=== PATIENT | female | born 1950 | race Caucasian/White ===

== ENCOUNTER 2018-11-27 09:58 | Inpatient (IN) ==
[2018-11-27] MEDS ORDERED: MORPHINE 4 MG/1 ML VIAL IV PRN (10:54)
[2018-11-27] MEDS ORDERED: PROMETHAZINE 25 MG/1 ML VIAL IM PRN (10:54)
[2018-11-27 11:14] LABS: Basophils % 0.2 % (0.0-0.8); Eosinophils # 0.1 10*3/uL (0.0-0.87); Eosinophils % 1.4 % (0.00-10.9); Hematocrit 28.4 VOL% (35.7-47.0); Hemoglobin 8.8 GM/DL (12.0-16.0); Immature Granulocytes % 0.6 %; Immature Granulocytes Absolute 0.04 #; Lymphocytes # 1.5 10*3/uL (1.4-4.0); Lymphocytes % 23.4 % (21.3-54.2); Mean Corpuscular Volume 95.9 FL (87-102); Mean Platelet Volume 9.2 FL (9.6-12.0); Monocytes % 7.5 % (1.7-12.7); Neutrophils % 66.9 % (38.7-73.9); Platelet Count 225 T/CUMM (130-400); Red Blood Count 2.96 MC/CUMM (3.8-5.5); Red Cell Distribution Width 14.7 % (9.3-17.3); White Blood Count 6.5 T/CUMM (4-12)
[2018-11-27 11:52] LABS: Alanine Aminotransferase 20 U/L (13-56); Albumin 3.3 G/DL (3.4-5.0); Alkaline Phosphatase 175 U/L (45-117); Aspartate Amino Transferase 16 U/L (0-37); Bilirubin,Total < 0.39 MG/DL (0.2-1.0); Blood Urea Nitrogen 89 MG/DL (7-18); Calcium 7.2 MG/DL (8.5-10.1); Glucose 71 MG/DL (74-106); Osmolality,Calculated 301.5 MOS/KG (273-304)
[2018-11-27 11:59] LABS: Thyroid Stimulating Hormone 11.3 uIU/ml (0.358-3.74)
[2018-11-27 12:13] LABS: % Iron Saturation 32.8 % (18-50); Ferritin 45.8 ng/ml (8-252)
[2018-11-27] MEDS: PANTOPRAZOLE 40 MG TABLET PO SCH (13:10)
[2018-11-27] MEDS: SODIUM BICARB INJ 150 MEQ in STERILE WATER INJ 850 ML IV SCH (13:10)
[2018-11-27] MEDS ORDERED: MAGNESIUM SULF RIDER 2 GM in PREMIX 1 EACH IV ONE (13:29)
[2018-11-27] MEDS ORDERED: GLUCAGON 1 MG VIAL IM PRN (13:34)
[2018-11-27] MEDS ORDERED: DEXTROSE 50% 25 GM/50 ML VIAL IV PRN (13:34)
[2018-11-27] MEDS: ASPIRIN EC 81 MG TABLET PO SCH (13:47)
[2018-11-27] MEDS ORDERED: SODIUM POLYSTYRENE SULFATE 15 GM/60 ML BOTTLE PO STA (13:54)
[2018-11-27 14:09] LABS: Free T4 (Free Thyroxine) 0.82 NG/DL (0.76-1.46)
[2018-11-27] MEDS: CARVEDILOL 12.5 MG TABLET PO SCH (16:08)
[2018-11-27] MEDS: SODIUM BICARBONATE 650 MG TABLET PO SCH ×2 (16:08→20:25)
[2018-11-27] MEDS: INSULIN REGULAR 100 UNIT/ML SUBCUT SCH ×2 (16:10→21:16)
[2018-11-27 17:02] LABS: Apearance,Urine CLEAR (Clear); Bacteria,Urine Many /HPF (Few); Bilirubin,Urine Negative (Negative); Blood, Urine Small mg/dL (Negative); Glucose,Urine (UA) Negative (Negative); Ketones,Urine Negative (Negative); Mucus,Urine Occasional /LPF (Occasional); Nitrite,Urine Negative (Negative); Protein,Urine 100 MG/DL; RBC,Urine 2 /HPF (0-4); Squamous Epithelial Cell,Urine Occasional /HPF (0-10); Urine Color Yellow (Yellow); Urine Urobilinogen < 2.0 EU/DL (0.2-1.0); WBC,Urine 19 /HPF (0-6)
[2018-11-27 21:48] LABS: Protein/Creatinine Ratio,Urine 4.4 RATIO
[2018-11-28] MEDS: SODIUM BICARB INJ 150 MEQ in STERILE WATER INJ 850 ML IV SCH (01:22)
[2018-11-28 04:52] LABS: Basophils % 0.3 % (0.0-0.8); Eosinophils # 0.1 10*3/uL (0.0-0.87); Hematocrit 25.8 VOL% (35.7-47.0); Hemoglobin 8.4 GM/DL (12.0-16.0); Immature Granulocytes % 0.3 %; Immature Granulocytes Absolute 0.02 #; Lymphocytes # 1.4 10*3/uL (1.4-4.0); Lymphocytes % 23.9 % (21.3-54.2); Mean Corpuscular HGB Conc 32.6 GM/DL (32-36); Mean Corpuscular Volume 91.5 FL (87-102); Mean Platelet Volume 9.6 FL (9.6-12.0); Monocytes % 8.1 % (1.7-12.7); Neutrophils % 66.4 % (38.7-73.9); Platelet Count 219 T/CUMM (130-400); Red Blood Count 2.82 MC/CUMM (3.8-5.5); Red Cell Distribution Width 14.3 % (9.3-17.3); White Blood Count 5.9 T/CUMM (4-12)
[2018-11-28 05:25] LABS: Calcium 6.5 MG/DL (8.5-10.1); Osmolality,Calculated 302.7 MOS/KG (273-304)
[2018-11-28 05:59] LABS: Risk Ratio 3.58; VLDL CHOLESTEROL 40.4 MG/DL
[2018-11-28] MEDS: LEVOTHYROXINE 150 MCG TABLET PO SCH (06:09)
[2018-11-28] MEDS ORDERED: LEVOTHYROXINE 100 MCG TABLET PO SCH (07:00)
[2018-11-28 08:38] LABS: Random Urine Protein (Bench) 151 MG/DL (<11.9)
[2018-11-28] MEDS: SODIUM BICARB INJ 100 MEQ in DEXTROSE 5% NACL 0.45% 1,000 ML IV SCH ×2 (09:04→23:45)
[2018-11-28] MEDS: INSULIN REGULAR 100 UNIT/ML SUBCUT SCH ×4 (09:06→20:48)
[2018-11-28] MEDS: amLODIPine 5 MG TABLET PO SCH (09:06)
[2018-11-28] MEDS: ACETAMINOPHEN 325 MG TABLET PO PRN (09:06)
[2018-11-28] MEDS: SODIUM BICARBONATE 650 MG TABLET PO SCH ×3 (10:12→20:49)
[2018-11-28] MEDS: ONDANSETRON 4 MG/2 ML VIAL IV PRN ×2 (10:25→18:31)
[2018-11-28 13:02] LABS: Folate 6.4 NG/ML (5.4-24.0)
[2018-11-28] MEDS: LEVOFLOXACIN 500 MG TABLET PO SCH (15:37)
[2018-11-28] MEDS: PANTOPRAZOLE 40 MG TABLET PO SCH (15:38)
[2018-11-28] MEDS: SIMVASTATIN 20 MG TABLET PO SCH (15:38)
[2018-11-28] MEDS: ASPIRIN EC 81 MG TABLET PO SCH (15:38)
[2018-11-28] MEDS: CARVEDILOL 12.5 MG TABLET PO SCH ×2 (15:38→17:33)
[2018-11-29 05:43] LABS: Basophils % 0.2 % (0.0-0.8); Eosinophils % 0.8 % (0.00-10.9); Hematocrit 23.3 VOL% (35.7-47.0); Hemoglobin 7.6 GM/DL (12.0-16.0); Immature Granulocytes % 0.2 %; Immature Granulocytes Absolute 0.01 #; Lymphocytes # 1.6 10*3/uL (1.4-4.0); Lymphocytes % 30.8 % (21.3-54.2); Mean Corpuscular HGB Conc 32.6 GM/DL (32-36); Mean Corpuscular Volume 92.5 FL (87-102); Mean Platelet Volume 9.7 FL (9.6-12.0); Monocytes % 9.5 % (1.7-12.7); Neutrophils % 58.5 % (38.7-73.9); Platelet Count 216 T/CUMM (130-400); Red Blood Count 2.52 MC/CUMM (3.8-5.5); Red Cell Distribution Width 14.4 % (9.3-17.3); White Blood Count 5.1 T/CUMM (4-12)
[2018-11-29 06:14] LABS: Calcium 5.9 MG/DL (8.5-10.1); Osmolality,Calculated 305.7 MOS/KG (273-304)
[2018-11-29] MEDS: SODIUM BICARBONATE 650 MG TABLET PO SCH ×4 (07:04→20:49)
[2018-11-29] MEDS: LEVOTHYROXINE 150 MCG TABLET PO SCH (07:04)
[2018-11-29] MEDS: SODIUM BICARB INJ 100 MEQ in DEXTROSE 5% NACL 0.45% 1,000 ML IV SCH (07:06)
[2018-11-29] MEDS ORDERED: SODIUM CHLORIDE 0.9% 1,000 ML IV PRN (07:11)
[2018-11-29] MEDS ORDERED: EPOETIN ALFA 10,000 UNIT/1 ML VIAL SUBCUT ONE (07:52)
[2018-11-29] MEDS ORDERED: CALCIUM GLUCONATE 2,000 MG in SODIUM CHLORIDE 0.9% 100 ML IV PRN (07:52)
[2018-11-29] MEDS: CARVEDILOL 12.5 MG TABLET PO SCH ×2 (08:37→16:56)
[2018-11-29] MEDS: PANTOPRAZOLE 40 MG TABLET PO SCH (08:37)
[2018-11-29] MEDS: INSULIN REGULAR 100 UNIT/ML SUBCUT SCH ×3 (08:37→16:48)
[2018-11-29] MEDS: amLODIPine 5 MG TABLET PO SCH (08:37)
[2018-11-29] MEDS: LEVOFLOXACIN 500 MG TABLET PO SCH (08:37)
[2018-11-29] MEDS: SIMVASTATIN 20 MG TABLET PO SCH (08:37)
[2018-11-29] MEDS: ASPIRIN EC 81 MG TABLET PO SCH (08:38)
[2018-11-29] MEDS: INSULIN GLARGINE 100 UNIT/ML SUBCUT SCH (09:10)
[2018-11-29] MEDS: cefTRIAXone 1,000 MG in SYRINGE 1 EACH IV SCH (12:29)
[2018-11-29 13:51] LABS: Hematocrit 30.2 VOL% (35.7-47.0)
[2018-11-29 13:53] LABS: Hemoglobin 9.8 GM/DL (12.0-16.0)
[2018-11-29] MEDS: ONDANSETRON 4 MG/2 ML VIAL IV PRN (17:20)
[2018-11-30] MEDS: ACETAMINOPHEN 325 MG TABLET PO PRN (00:27)
[2018-11-30] MEDS: INSULIN REGULAR 100 UNIT/ML SUBCUT SCH ×3 (00:45→12:15)
[2018-11-30 05:11] LABS: Basophils % 0.3 % (0.0-0.8); Eosinophils # 0.1 10*3/uL (0.0-0.87); Eosinophils % 1.4 % (0.00-10.9); Hematocrit 29.9 VOL% (35.7-47.0); Hemoglobin 9.6 GM/DL (12.0-16.0); Immature Granulocytes % 0.5 %; Immature Granulocytes Absolute 0.03 #; Lymphocytes # 1.8 10*3/uL (1.4-4.0); Lymphocytes % 28.3 % (21.3-54.2); Mean Corpuscular HGB Conc 32.1 GM/DL (32-36); Mean Platelet Volume 9.9 FL (9.6-12.0); Monocytes % 9.8 % (1.7-12.7); Neutrophils % 59.7 % (38.7-73.9); Platelet Count 231 T/CUMM (130-400); Red Blood Count 3.25 MC/CUMM (3.8-5.5); White Blood Count 6.4 T/CUMM (4-12)
[2018-11-30 05:18] LABS: Calcium 6.3 MG/DL (8.5-10.1); Osmolality,Calculated 307.4 MOS/KG (273-304)
[2018-11-30] MEDS: LEVOTHYROXINE 150 MCG TABLET PO SCH (06:25)
[2018-11-30] MEDS: SODIUM BICARBONATE 650 MG TABLET PO SCH (09:19)
[2018-11-30] MEDS: CARVEDILOL 12.5 MG TABLET PO SCH (09:20)
[2018-11-30] MEDS: SIMVASTATIN 20 MG TABLET PO SCH (09:20)
[2018-11-30] MEDS: PANTOPRAZOLE 40 MG TABLET PO SCH (09:20)
[2018-11-30] MEDS: INSULIN GLARGINE 100 UNIT/ML SUBCUT SCH (09:20)
[2018-11-30] MEDS: amLODIPine 5 MG TABLET PO SCH (09:20)
[2018-11-30] MEDS: ASPIRIN EC 81 MG TABLET PO SCH (09:20)
[2018-11-30] MEDS ORDERED: CLORAZEPATE 3.75 MG TABLET PO SCH (09:51)
[2018-11-30] MEDS ORDERED: MAGNESIUM SULF RIDER 2 GM in PREMIX 1 EACH IV ONE (09:51)
[2018-11-30] MEDS ORDERED: CALCIUM ACETATE 667 MG CAPSULE PO SCH (12:00)
[2018-11-30] MEDS: cefTRIAXone 1,000 MG in SYRINGE 1 EACH IV SCH (12:15)
[2018-11-30 12:56] VITALS: BP 164/82
[2018-11-30] MEDS ORDERED: CALCIUM GLUCONATE 2,000 MG in SODIUM CHLORIDE 0.9% 100 ML IV ONE (13:00)
== END 2018-11-30 14:42 | disposition home health service (06) | DRG 683 ==
LOC: INTOOBSV 10:30 → N.2E 10:30 → SUATTDRO 10:30
PROVIDERS: ADMIT Internal Medicine; ATTEND Internal Medicine Cardiovascular Disease

== ENCOUNTER 2019-04-12 23:58 | Inpatient (IN) ==
[2019-04-13] MEDS ORDERED: ONDANSETRON 4 MG/2 ML VIAL IV STA (00:37)
[2019-04-13] MEDS ORDERED: SODIUM CHLORIDE 0.9% 1,000 ML IV STA (00:37)
[2019-04-13 01:03] LABS: Bilirubin,Total 0.4 MG/DL (0.2-1.0); Calcium 6.5 MG/DL (8.5-10.1); Osmolality,Calculated 280.5 MOS/KG (273-304); Total Protein 4.2 G/DL (6.4-8.3)
[2019-04-13] MEDS ORDERED: ACETAMINOPHEN 500 MG TABLET PO STA (01:07)
[2019-04-13] MEDS ORDERED: ACETAMINOPHEN 500 MG TABLET ONE (01:08)
[2019-04-13] MEDS ORDERED: MAGNESIUM SULF RIDER 1 GM in PREMIX 1 EACH IV STA (01:16)
[2019-04-13 01:30] LABS: Basophils % 0.3 % (0.0-0.8); Eosinophils # 0.1 10*3/uL (0.0-0.87); Eosinophils % 0.7 % (0.00-10.9); Hematocrit 24.3 VOL% (35.7-47.0); Hemoglobin 8.4 GM/DL (12.0-16.0); Immature Granulocytes % 0.9 %; Lymphocytes # 4.1 10*3/uL (1.4-4.0); Lymphocytes % 37.1 % (21.3-54.2); Mean Corpuscular HGB Conc 34.6 GM/DL (32-36); Mean Platelet Volume 10.9 FL (9.6-12.0); Monocytes % 8.3 % (1.7-12.7); Neutrophils % 52.7 % (38.7-73.9); Platelet Count 276 T/CUMM (130-400); Red Blood Count 2.53 MC/CUMM (3.8-5.5); Red Cell Distribution Width 14.8 % (9.3-17.3)
[2019-04-13] MEDS ORDERED: POTASSIUM CHLORIDE INJ 40 MEQ in DEXTROSE 5% LACTATED RINGERS 1,000 ML IV SCH (01:30)
[2019-04-13 02:17] LABS: Risk Ratio 3.12
[2019-04-13] MEDS ORDERED: GLUCAGON 1 MG VIAL IM PRN (03:06)
[2019-04-13] MEDS ORDERED: DEXTROSE 50% 25 GM/50 ML VIAL IV PRN (03:06)
[2019-04-13] MEDS ORDERED: MORPHINE 4 MG/1 ML VIAL IV ONE (03:30)
[2019-04-13] MEDS: HEPARIN 5,000 UNIT/1 ML VIAL SUBCUT SCH ×3 (03:45→21:37)
[2019-04-13] MEDS: POTASSIUM CHLORIDE RIDER 10 MEQ in PREMIX 1 EACH IV SCH ×3 (03:53→06:54)
[2019-04-13 05:14] LABS: Basophils % 0.2 % (0.0-0.8); Eosinophils % 0.7 % (0.00-10.9); Hemoglobin 7.9 GM/DL (12.0-16.0); Immature Granulocytes % 0.5 %; Immature Granulocytes Absolute 0.03 #; Lymphocytes # 1.8 10*3/uL (1.4-4.0); Lymphocytes % 28.7 % (21.3-54.2); Mean Corpuscular HGB Conc 34.3 GM/DL (32-36); Mean Corpuscular Volume 95.8 FL (87-102); Mean Platelet Volume 10.5 FL (9.6-12.0); Monocytes % 8.5 % (1.7-12.7); Neutrophils % 61.4 % (38.7-73.9); Platelet Count 269 T/CUMM (130-400); Red Cell Distribution Width 14.9 % (9.3-17.3); White Blood Count 6.1 T/CUMM (4-12)
[2019-04-13 05:42] LABS: Albumin 1.1 G/DL (3.4-5.0); Bilirubin,Total 1.2 MG/DL (0.2-1.0); Calcium 6.5 MG/DL (8.5-10.1); Osmolality,Calculated 284.8 MOS/KG (273-304); Total Protein 4.2 G/DL (6.4-8.3)
[2019-04-13] MEDS: LEVOTHYROXINE 150 MCG TABLET PO SCH (06:07)
[2019-04-13] MEDS: ONDANSETRON 4 MG/2 ML VIAL IV PRN ×3 (06:11→21:23)
[2019-04-13] MEDS: INSULIN LISPRO 100 UNIT/ML SUBCUT SCH ×3 (08:05→19:35)
[2019-04-13] MEDS ORDERED: PANTOPRAZOLE 40 MG TABLET PO SCH (09:00)
[2019-04-13] MEDS: MEGESTROL 40 MG TABLET PO SCH ×3 (10:37→21:27)
[2019-04-13] MEDS ORDERED: CALCIUM GLUCONATE 2,000 MG in SODIUM CHLORIDE 0.9% 100 ML IV PRN (19:38)
[2019-04-13] MEDS ORDERED: EPOETIN ALFA 10,000 UNIT/1 ML VIAL SUBCUT ONE (21:00)
[2019-04-13] MEDS: POTASSIUM CHLORIDE 20 MEQ/15 ML UDCUP PO SCH (21:27)
[2019-04-13] MEDS: PANTOPRAZOLE 40 MG TABLET PO SCH (21:44)
[2019-04-14] MEDS: INSULIN LISPRO 100 UNIT/ML SUBCUT SCH ×4 (00:37→17:57)
[2019-04-14] MEDS: SODIUM CHLORIDE 0.9% 1,000 ML IV SCH (08:26)
[2019-04-14] MEDS: LEVOTHYROXINE 150 MCG TABLET PO SCH (08:26)
[2019-04-14] MEDS: POTASSIUM CHLORIDE 20 MEQ/15 ML UDCUP PO SCH ×5 (08:27→22:48)
[2019-04-14] MEDS: MEGESTROL 40 MG TABLET PO SCH ×3 (08:27→22:46)
[2019-04-14] MEDS: PANTOPRAZOLE 40 MG TABLET PO SCH ×2 (08:27→22:44)
[2019-04-14] MEDS: POTASSIUM CHLORIDE RIDER 10 MEQ in PREMIX 1 EACH IV PRN ×5 (08:28→17:56)
[2019-04-14] MEDS: HEPARIN 5,000 UNIT/1 ML VIAL SUBCUT SCH ×2 (09:10→18:01)
[2019-04-14] MEDS: ONDANSETRON 4 MG/2 ML VIAL IV PRN ×3 (09:11→22:36)
[2019-04-14] MEDS ORDERED: MAGNESIUM SULF RIDER 2 GM in PREMIX 1 EACH IV ONE (09:28)
[2019-04-14 09:58] LABS: Basophils % 0.3 % (0.0-0.8); Eosinophils # 0.2 10*3/uL (0.0-0.87); Eosinophils % 2.8 % (0.00-10.9); Hematocrit 24.1 VOL% (35.7-47.0); Immature Granulocytes % 1.3 %; Immature Granulocytes Absolute 0.09 #; Lymphocytes # 2.6 10*3/uL (1.4-4.0); Lymphocytes % 37.6 % (21.3-54.2); Mean Corpuscular HGB Conc 33.2 GM/DL (32-36); Mean Corpuscular Volume 99.2 FL (87-102); Mean Platelet Volume 9.8 FL (9.6-12.0); Platelet Count 287 T/CUMM (130-400); Red Blood Count 2.43 MC/CUMM (3.8-5.5); Red Cell Distribution Width 15.8 % (9.3-17.3); White Blood Count 6.8 T/CUMM (4-12)
[2019-04-14 10:30] LABS: Calcium 7.1 MG/DL (8.5-10.1); Osmolality,Calculated 278.8 MOS/KG (273-304)
[2019-04-15] MEDS: INSULIN LISPRO 100 UNIT/ML SUBCUT SCH ×5 (01:06→23:58)
[2019-04-15 04:56] LABS: Basophils % 0.3 % (0.0-0.8); Eosinophils # 0.3 10*3/uL (0.0-0.87); Eosinophils % 3.9 % (0.00-10.9); Hematocrit 21.4 VOL% (35.7-47.0); Immature Granulocytes % 0.9 %; Immature Granulocytes Absolute 0.07 #; Lymphocytes # 2.8 10*3/uL (1.4-4.0); Mean Corpuscular HGB Conc 32.7 GM/DL (32-36); Mean Corpuscular Volume 101.4 FL (87-102); Neutrophils % 49.9 % (38.7-73.9); Platelet Count 272 T/CUMM (130-400); Red Blood Count 2.11 MC/CUMM (3.8-5.5); White Blood Count 7.6 T/CUMM (4-12)
[2019-04-15 05:19] LABS: Osmolality,Calculated 276.1 MOS/KG (273-304)
[2019-04-15] MEDS: LEVOTHYROXINE 150 MCG TABLET PO SCH (05:52)
[2019-04-15] MEDS ORDERED: SODIUM CHLORIDE 0.9% 1,000 ML IV PRN (07:31)
[2019-04-15] MEDS ORDERED: LIDOCAINE 2% 5 ML VIAL ONE (09:00)
[2019-04-15] MEDS ORDERED: PROPOFOL 200 MG/20 ML VIAL IV ONE (09:00)
[2019-04-15] MEDS: SODIUM CHLORIDE 0.9% 1,000 ML IV SCH (11:32)
[2019-04-15] MEDS: MEGESTROL 40 MG TABLET PO SCH ×3 (11:32→21:07)
[2019-04-15] MEDS: PANTOPRAZOLE 40 MG TABLET PO SCH ×2 (11:32→21:07)
[2019-04-15] MEDS: EPOETIN ALFA 10,000 UNIT/1 ML VIAL SUBCUT SCH (11:56)
[2019-04-15 21:56] LABS: Hematocrit 34.7 VOL% (35.7-47.0); Hemoglobin 12.1 GM/DL (12.0-16.0)
[2019-04-16] MEDS: INSULIN LISPRO 100 UNIT/ML SUBCUT SCH ×4 (05:41→23:36)
[2019-04-16] MEDS: SODIUM CHLORIDE 0.9% 1,000 ML IV SCH (05:42)
[2019-04-16] MEDS: LEVOTHYROXINE 150 MCG TABLET PO SCH (05:51)
[2019-04-16] MEDS: PANTOPRAZOLE 40 MG TABLET PO SCH ×2 (08:31→20:53)
[2019-04-16] MEDS: MEGESTROL 40 MG TABLET PO SCH ×3 (08:31→20:53)
[2019-04-16 09:12] LABS: Albumin 1.1 G/DL (3.4-5.0); Bilirubin,Total 0.4 MG/DL (0.2-1.0); Calcium 7.5 MG/DL (8.5-10.1); Osmolality,Calculated 278.7 MOS/KG (273-304); Total Protein 4.3 G/DL (6.4-8.3)
[2019-04-16] MEDS: ONDANSETRON 4 MG/2 ML VIAL IV PRN (19:21)
[2019-04-17] MEDS: LEVOTHYROXINE 150 MCG TABLET PO SCH (06:18)
[2019-04-17] MEDS: INSULIN LISPRO 100 UNIT/ML SUBCUT SCH ×3 (06:19→18:31)
[2019-04-17] MEDS ORDERED: MAGNESIUM SULF RIDER 2 GM in PREMIX 1 EACH IV ONE (08:26)
[2019-04-17] MEDS: EPOETIN ALFA 10,000 UNIT/1 ML VIAL SUBCUT SCH (10:08)
[2019-04-17] MEDS: MEGESTROL 40 MG TABLET PO SCH ×3 (10:10→20:58)
[2019-04-17] MEDS: PANTOPRAZOLE 40 MG TABLET PO SCH ×2 (10:11→20:58)
[2019-04-17] MEDS: ONDANSETRON 4 MG/2 ML VIAL IV PRN ×2 (10:16→17:17)
[2019-04-17] MEDS: SODIUM CHLORIDE 0.9% 1,000 ML IV SCH (15:27)
[2019-04-17] MEDS: ACETAMINOPHEN 325 MG TABLET PO PRN (15:42)
[2019-04-17] MEDS ORDERED: THIAMINE INJ 100 MG, FOLIC ACID INJ 1 MG, MULTIVITAMIN INJ 10 ML in SODIUM CHLORIDE 0.9... IV ONE ×2 (17:00→20:00)
[2019-04-17 18:22] LABS: Apearance,Urine Slightly Hazy (Clear); Bacteria,Urine Occasional /HPF (Few); Bilirubin,Urine Negative (Negative); Blood, Urine Negative (Negative); Glucose,Urine (UA) >=500 mg/dL (Negative); Hyaline Casts,Urine 8 /LPF (0-3); Ketones,Urine 5 mg/dL (Negative); Mucus,Urine Occasional /LPF (Occasional); Nitrite,Urine Negative (Negative); Protein,Urine 100 MG/DL; RBC,Urine 10 /HPF (0-4); Squamous Epithelial Cell,Urine Occasional /HPF (0-10); Urine Color Yellow (Yellow); Urine Specific Gravity 1.009 (1.001-1.035); Urine Urobilinogen < 2.0 EU/DL (0.2-1.0); WBC,Urine 18 /HPF (0-6)
[2019-04-17 18:43] LABS: Protein/Creatinine Ratio,Urine 1.2 RATIO
[2019-04-18] MEDS: INSULIN LISPRO 100 UNIT/ML SUBCUT SCH ×4 (00:51→18:45)
[2019-04-18 05:17] LABS: Basophils % 0.5 % (0.0-0.8); Eosinophils # 0.2 10*3/uL (0.0-0.87); Eosinophils % 3.1 % (0.00-10.9); Hematocrit 29.9 VOL% (35.7-47.0); Immature Granulocytes % 0.5 %; Immature Granulocytes Absolute 0.03 #; Lymphocytes % 34.2 % (21.3-54.2); Mean Corpuscular HGB Conc 33.4 GM/DL (32-36); Mean Corpuscular Volume 95.5 FL (87-102); Mean Platelet Volume 9.8 FL (9.6-12.0); Monocytes % 8.6 % (1.7-12.7); NRBC # 0.03 10*3/uL; Neutrophils % 53.1 % (38.7-73.9); Platelet Count 173 T/CUMM (130-400); Red Blood Count 3.13 MC/CUMM (3.8-5.5); Red Cell Distribution Width 16.5 % (9.3-17.3); White Blood Count 5.8 T/CUMM (4-12)
[2019-04-18 06:00] LABS: Calcium 7.1 MG/DL (8.5-10.1); Osmolality,Calculated 274.2 MOS/KG (273-304)
[2019-04-18] MEDS: LEVOTHYROXINE 150 MCG TABLET PO SCH (07:04)
[2019-04-18] MEDS: SODIUM CHLORIDE 0.9% 1,000 ML IV SCH (07:07)
[2019-04-18] MEDS: PANTOPRAZOLE 40 MG TABLET PO SCH ×2 (08:27→22:22)
[2019-04-18] MEDS: MEGESTROL 40 MG TABLET PO SCH ×3 (08:27→22:22)
[2019-04-18] MEDS: ONDANSETRON 4 MG/2 ML VIAL IV PRN (08:33)
[2019-04-18] MEDS ORDERED: POTASSIUM CHLORIDE 20 MEQ/15 ML UDCUP PO ONE (08:46)
[2019-04-18] MEDS ORDERED: MAGNESIUM SULF RIDER 2 GM in PREMIX 1 EACH IV ONE (08:46)
[2019-04-18] MEDS: THIAMINE 100 MG TABLET PO SCH (11:03)
[2019-04-18] MEDS: LORazepam 2 MG/1 ML VIAL IV PRN (14:52)
[2019-04-19] MEDS: INSULIN LISPRO 100 UNIT/ML SUBCUT SCH ×4 (00:15→18:41)
[2019-04-19] MEDS: LORazepam 2 MG/1 ML VIAL IV PRN (01:24)
[2019-04-19] MEDS: LEVOTHYROXINE 150 MCG TABLET PO SCH (06:30)
[2019-04-19] MEDS: SODIUM CHLORIDE 0.9% 1,000 ML IV SCH (06:34)
[2019-04-19] MEDS: THIAMINE 100 MG TABLET PO SCH (08:52)
[2019-04-19] MEDS: PANTOPRAZOLE 40 MG TABLET PO SCH ×2 (08:52→22:01)
[2019-04-19] MEDS: MEGESTROL 40 MG TABLET PO SCH ×3 (08:52→22:00)
[2019-04-20 05:02] LABS: Basophils % 0.2 % (0.0-0.8); Eosinophils # 0.2 10*3/uL (0.0-0.87); Hematocrit 30.3 VOL% (35.7-47.0); Hemoglobin 9.9 GM/DL (12.0-16.0); Immature Granulocytes % 0.4 %; Immature Granulocytes Absolute 0.02 #; Lymphocytes # 1.8 10*3/uL (1.4-4.0); Lymphocytes % 32.5 % (21.3-54.2); Mean Corpuscular HGB Conc 32.7 GM/DL (32-36); Mean Corpuscular Volume 97.7 FL (87-102); Mean Platelet Volume 9.9 FL (9.6-12.0); Monocytes % 7.6 % (1.7-12.7); Neutrophils % 56.3 % (38.7-73.9); Platelet Count 175 T/CUMM (130-400); Red Cell Distribution Width 16.4 % (9.3-17.3); White Blood Count 5.4 T/CUMM (4-12)
[2019-04-20 05:16] LABS: Albumin 0.9 G/DL (3.4-5.0); Calcium 7.2 MG/DL (8.5-10.1); Osmolality,Calculated 280.4 MOS/KG (273-304)
[2019-04-20 05:22] LABS: Prealbumin 9.9 MG/DL (20-40)
[2019-04-20] MEDS: INSULIN LISPRO 100 UNIT/ML SUBCUT SCH ×5 (05:53→23:33)
[2019-04-20] MEDS: LEVOTHYROXINE 150 MCG TABLET PO SCH (05:55)
[2019-04-20] MEDS: SODIUM CHLORIDE 0.9% 1,000 ML IV SCH (06:41)
[2019-04-20] MEDS ORDERED: MAGNESIUM SULF RIDER 2 GM in PREMIX 1 EACH IV ONE (08:30)
[2019-04-20] MEDS: MEGESTROL 40 MG TABLET PO SCH ×3 (09:47→20:31)
[2019-04-20] MEDS: PANTOPRAZOLE 40 MG TABLET PO SCH ×2 (09:52→20:31)
[2019-04-20] MEDS: THIAMINE 100 MG TABLET PO SCH (09:52)
[2019-04-20] MEDS: EPOETIN ALFA 10,000 UNIT/1 ML VIAL SUBCUT SCH (09:52)
[2019-04-20] MEDS: ACETAMINOPHEN 325 MG TABLET PO PRN ×2 (11:28→20:31)
[2019-04-21] MEDS: INSULIN LISPRO 100 UNIT/ML SUBCUT SCH ×3 (05:40→17:06)
[2019-04-21] MEDS: LEVOTHYROXINE 150 MCG TABLET PO SCH (05:44)
[2019-04-21 06:11] LABS: Basophils % 0.3 % (0.0-0.8); Eosinophils # 0.2 10*3/uL (0.0-0.87); Eosinophils % 3.9 % (0.00-10.9); Hematocrit 29.3 VOL% (35.7-47.0); Hemoglobin 9.7 GM/DL (12.0-16.0); Immature Granulocytes % 0.5 %; Immature Granulocytes Absolute 0.03 #; Lymphocytes # 1.9 10*3/uL (1.4-4.0); Mean Corpuscular HGB Conc 33.1 GM/DL (32-36); Mean Corpuscular Volume 97.7 FL (87-102); Monocytes % 7.3 % (1.7-12.7); Platelet Count 152 T/CUMM (130-400); White Blood Count 6.2 T/CUMM (4-12)
[2019-04-21 06:29] LABS: Calcium 7.2 MG/DL (8.5-10.1); Osmolality,Calculated 271.1 MOS/KG (273-304)
[2019-04-21 06:33] LABS: Alanine Aminotransferase 9 U/L (13-56); Albumin 0.9 G/DL (3.4-5.0); Alkaline Phosphatase 141 U/L (45-117); Aspartate Amino Transferase 10 U/L (0-37); Bilirubin,Direct < 0.100 MG/DL (0.0-0.20); Bilirubin,Indirect 0.5 MG/DL (0.0-1.0); Total Protein 3.7 G/DL (6.4-8.3)
[2019-04-21] MEDS: SODIUM CHLORIDE 0.9% 1,000 ML IV SCH (08:01)
[2019-04-21] MEDS: THIAMINE 100 MG TABLET PO SCH (09:50)
[2019-04-21] MEDS: MEGESTROL 40 MG TABLET PO SCH ×3 (09:50→20:50)
[2019-04-21] MEDS: PANTOPRAZOLE 40 MG TABLET PO SCH ×2 (09:50→20:50)
[2019-04-21] MEDS: ONDANSETRON 4 MG/2 ML VIAL IV PRN (09:56)
[2019-04-21] MEDS: POTASSIUM CHLORIDE RIDER 10 MEQ in PREMIX 1 EACH IV PRN ×2 (12:00→14:17)
[2019-04-21] MEDS: ACETAMINOPHEN 325 MG TABLET PO PRN ×2 (15:38→20:50)
[2019-04-21] MEDS ORDERED: ALBUMIN 25% 50 GM in PREMIX 1 EACH IV ONE (16:41)
[2019-04-22] MEDS: INSULIN LISPRO 100 UNIT/ML SUBCUT SCH ×4 (00:10→18:45)
[2019-04-22] MEDS: LEVOTHYROXINE 150 MCG TABLET PO SCH (06:12)
[2019-04-22 06:36] LABS: Apearance,Urine CLEAR (Clear); Bacteria,Urine Occasional /HPF (Few); Bilirubin,Urine Negative (Negative); Blood, Urine Negative (Negative); Glucose,Urine (UA) 50 mg/dL (Negative); Ketones,Urine 5 mg/dL (Negative); Nitrite,Urine Negative (Negative); Protein,Urine 30 MG/DL; RBC,Urine 2 /HPF (0-4); Squamous Epithelial Cell,Urine Occasional /HPF (0-10); Urine Color Yellow (Yellow); Urine Specific Gravity 1.015 (1.001-1.035); Urine Urobilinogen < 2.0 EU/DL (0.2-1.0); WBC,Urine 4 /HPF (0-6)
[2019-04-22 06:40] LABS: Hepatitis B Core IgM Quant 0.08 Index; Hepatitis B Surface Ag Quant 0.21 Index; Hepatitis B Surface Ag Result Negative (Negative); Hepatitis C Virus Ab Quant < 0.02 Index; Hepatitis C Virus Ab Result Negative (Negative)
[2019-04-22] MEDS: PANTOPRAZOLE 40 MG TABLET PO SCH ×2 (09:01→21:25)
[2019-04-22] MEDS: MEGESTROL 40 MG TABLET PO SCH ×3 (09:09→21:25)
[2019-04-22] MEDS: THIAMINE 100 MG TABLET PO SCH (09:10)
[2019-04-22] MEDS: EPOETIN ALFA 10,000 UNIT/1 ML VIAL SUBCUT SCH (09:10)
[2019-04-22] MEDS: cefTRIAXone 1,000 MG in SYRINGE 1 EACH IV SCH (09:24)
[2019-04-22] MEDS: ONDANSETRON 4 MG/2 ML VIAL IV PRN (21:23)
[2019-04-23] MEDS: INSULIN LISPRO 100 UNIT/ML SUBCUT SCH ×4 (00:31→18:13)
[2019-04-23 05:35] LABS: Basophils % 0.2 % (0.0-0.8); Eosinophils # 0.2 10*3/uL (0.0-0.87); Eosinophils % 4.8 % (0.00-10.9); Hematocrit 27.1 VOL% (35.7-47.0); Immature Granulocytes % 0.4 %; Immature Granulocytes Absolute 0.02 #; Lymphocytes # 1.6 10*3/uL (1.4-4.0); Lymphocytes % 31.5 % (21.3-54.2); Mean Corpuscular HGB Conc 33.2 GM/DL (32-36); Mean Corpuscular Volume 98.2 FL (87-102); Mean Platelet Volume 9.8 FL (9.6-12.0); Monocytes % 8.3 % (1.7-12.7); Neutrophils % 54.8 % (38.7-73.9); Platelet Count 176 T/CUMM (130-400); Red Blood Count 2.76 MC/CUMM (3.8-5.5); Red Cell Distribution Width 17.9 % (9.3-17.3); White Blood Count 5.1 T/CUMM (4-12)
[2019-04-23 05:53] LABS: Calcium 7.7 MG/DL (8.5-10.1); Osmolality,Calculated 279.2 MOS/KG (273-304)
[2019-04-23 05:53] LABS: Calcium 7.8 MG/DL (8.5-10.1)
[2019-04-23 06:00] LABS: Prealbumin 10.6 MG/DL (20-40)
[2019-04-23] MEDS: LEVOTHYROXINE 150 MCG TABLET PO SCH (06:14)
[2019-04-23] MEDS ORDERED: MAGNESIUM SULF RIDER 2 GM in PREMIX 1 EACH IV ONE (08:30)
[2019-04-23] MEDS: POTASSIUM CHLORIDE 20 MEQ TABLET PO SCH ×2 (09:49→22:27)
[2019-04-23] MEDS: PANTOPRAZOLE 40 MG TABLET PO SCH ×2 (09:49→22:27)
[2019-04-23] MEDS: THIAMINE 100 MG TABLET PO SCH (09:49)
[2019-04-23] MEDS: MEGESTROL 40 MG TABLET PO SCH ×3 (09:50→22:26)
[2019-04-23] MEDS: ACETAMINOPHEN 325 MG TABLET PO PRN (14:31)
[2019-04-23] MEDS: cefTRIAXone 1,000 MG in SYRINGE 1 EACH IV SCH (16:25)
[2019-04-24] MEDS: ACETAMINOPHEN 325 MG TABLET PO PRN ×2 (01:09→09:50)
[2019-04-24] MEDS: INSULIN LISPRO 100 UNIT/ML SUBCUT SCH ×4 (01:52→17:37)
[2019-04-24 05:32] LABS: Basophils % 0.4 % (0.0-0.8); Eosinophils # 0.2 10*3/uL (0.0-0.87); Eosinophils % 3.3 % (0.00-10.9); Hematocrit 27.2 VOL% (35.7-47.0); Hemoglobin 9.2 GM/DL (12.0-16.0); Immature Granulocytes % 0.4 %; Immature Granulocytes Absolute 0.02 #; Lymphocytes # 1.3 10*3/uL (1.4-4.0); Lymphocytes % 23.4 % (21.3-54.2); Mean Corpuscular HGB Conc 33.8 GM/DL (32-36); Mean Corpuscular Volume 97.8 FL (87-102); Mean Platelet Volume 9.8 FL (9.6-12.0); Monocytes % 7.1 % (1.7-12.7); Neutrophils % 65.4 % (38.7-73.9); Platelet Count 180 T/CUMM (130-400); Red Blood Count 2.78 MC/CUMM (3.8-5.5); Red Cell Distribution Width 18.4 % (9.3-17.3); White Blood Count 5.5 T/CUMM (4-12)
[2019-04-24 05:58] LABS: Calcium 7.8 MG/DL (8.5-10.1)
[2019-04-24] MEDS: LEVOTHYROXINE 150 MCG TABLET PO SCH (06:19)
[2019-04-24] MEDS: POTASSIUM CHLORIDE 20 MEQ TABLET PO SCH ×2 (08:45→21:00)
[2019-04-24] MEDS: THIAMINE 100 MG TABLET PO SCH (08:45)
[2019-04-24] MEDS: PANTOPRAZOLE 40 MG TABLET PO SCH ×2 (08:45→21:00)
[2019-04-24] MEDS: MEGESTROL 40 MG TABLET PO SCH ×3 (08:45→21:00)
[2019-04-24] MEDS: cefTRIAXone 1,000 MG in SYRINGE 1 EACH IV SCH (08:46)
[2019-04-24] MEDS: EPOETIN ALFA 10,000 UNIT/1 ML VIAL SUBCUT SCH (08:46)
[2019-04-24] MEDS ORDERED: MAGNESIUM OXIDE 400 MG TABLET PO ONE (09:13)
[2019-04-24] MEDS ORDERED: FUROSEMIDE 40 MG/4 ML VIAL IV ONE (12:27)
[2019-04-25] MEDS: INSULIN LISPRO 100 UNIT/ML SUBCUT SCH ×4 (00:04→18:35)
[2019-04-25] MEDS: ONDANSETRON 4 MG/2 ML VIAL IV PRN ×2 (02:54→17:23)
[2019-04-25] MEDS: ACETAMINOPHEN 325 MG TABLET PO PRN ×2 (02:56→09:05)
[2019-04-25] MEDS: LEVOTHYROXINE 150 MCG TABLET PO SCH (06:14)
[2019-04-25] MEDS: SODIUM CHLORIDE 0.9% 1,000 ML IV SCH (07:42)
[2019-04-25] MEDS: PANTOPRAZOLE 40 MG TABLET PO SCH ×2 (09:04→21:29)
[2019-04-25] MEDS: MEGESTROL 40 MG TABLET PO SCH ×3 (09:04→21:24)
[2019-04-25] MEDS: THIAMINE 100 MG TABLET PO SCH (09:05)
[2019-04-25] MEDS: cefTRIAXone 1,000 MG in SYRINGE 1 EACH IV SCH (09:05)
[2019-04-25] MEDS: FUROSEMIDE 40 MG/4 ML VIAL IV SCH (14:09)
[2019-04-26] MEDS: INSULIN LISPRO 100 UNIT/ML SUBCUT SCH ×5 (00:04→23:51)
[2019-04-26] MEDS: ACETAMINOPHEN 325 MG TABLET PO PRN ×2 (00:20→21:41)
[2019-04-26] MEDS: ONDANSETRON 4 MG/2 ML VIAL IV PRN ×2 (00:20→17:06)
[2019-04-26 04:00] LABS: Basophils % 0.5 % (0.0-0.8); Eosinophils # 0.2 10*3/uL (0.0-0.87); Eosinophils % 3.4 % (0.00-10.9); Hematocrit 29.6 VOL% (35.7-47.0); Hemoglobin 10.2 GM/DL (12.0-16.0); Immature Granulocytes % 0.2 %; Immature Granulocytes Absolute 0.01 #; Lymphocytes % 30.7 % (21.3-54.2); Mean Corpuscular HGB Conc 34.5 GM/DL (32-36); Mean Corpuscular Volume 99.7 FL (87-102); Monocytes % 7.6 % (1.7-12.7); NRBC # 0.02 10*3/uL; Neutrophils % 57.6 % (38.7-73.9); Platelet Count 225 T/CUMM (130-400); Red Blood Count 2.97 MC/CUMM (3.8-5.5); Red Cell Distribution Width 19.4 % (9.3-17.3); White Blood Count 6.6 T/CUMM (4-12)
[2019-04-26 04:30] LABS: Osmolality,Calculated 284.8 MOS/KG (273-304)
[2019-04-26] MEDS: LEVOTHYROXINE 150 MCG TABLET PO SCH (06:14)
[2019-04-26] MEDS: MEGESTROL 40 MG TABLET PO SCH ×3 (08:54→21:42)
[2019-04-26] MEDS: FUROSEMIDE 40 MG/4 ML VIAL IV SCH (08:55)
[2019-04-26] MEDS: cefTRIAXone 1,000 MG in SYRINGE 1 EACH IV SCH (08:55)
[2019-04-26] MEDS: THIAMINE 100 MG TABLET PO SCH (08:55)
[2019-04-26] MEDS: PANTOPRAZOLE 40 MG TABLET PO SCH ×2 (08:55→21:42)
[2019-04-26] MEDS ORDERED: POTASSIUM CHLORIDE 20 MEQ TABLET PO ONE (16:53)
[2019-04-26] MEDS: POTASSIUM CHLORIDE 20 MEQ TABLET PO PRN ×2 (17:05→21:42)
[2019-04-27 05:28] LABS: Basophils % 0.4 % (0.0-0.8); Eosinophils # 0.2 10*3/uL (0.0-0.87); Eosinophils % 5.1 % (0.00-10.9); Hematocrit 30.9 VOL% (35.7-47.0); Hemoglobin 9.9 GM/DL (12.0-16.0); Immature Granulocytes % 0.4 %; Immature Granulocytes Absolute 0.02 #; Lymphocytes # 1.4 10*3/uL (1.4-4.0); Lymphocytes % 30.1 % (21.3-54.2); Mean Corpuscular Volume 103.7 FL (87-102); Mean Platelet Volume 10.2 FL (9.6-12.0); Monocytes % 10.4 % (1.7-12.7); NRBC # 0.07 10*3/uL; Neutrophils % 53.6 % (38.7-73.9); Platelet Count 187 T/CUMM (130-400); Red Blood Count 2.98 MC/CUMM (3.8-5.5); Red Cell Distribution Width 20.7 % (9.3-17.3); White Blood Count 4.7 T/CUMM (4-12)
[2019-04-27 05:59] LABS: Calcium 7.7 MG/DL (8.5-10.1); Osmolality,Calculated 277.8 MOS/KG (273-304)
[2019-04-27] MEDS: INSULIN LISPRO 100 UNIT/ML SUBCUT SCH ×2 (06:11→11:28)
[2019-04-27] MEDS: LEVOTHYROXINE 150 MCG TABLET PO SCH (06:11)
[2019-04-27] MEDS: POTASSIUM CHLORIDE 20 MEQ TABLET PO PRN ×2 (06:44→10:00)
[2019-04-27] MEDS: ONDANSETRON 4 MG/2 ML VIAL IV PRN (08:06)
[2019-04-27] MEDS: ACETAMINOPHEN 325 MG TABLET PO PRN (08:08)
[2019-04-27] MEDS: PANTOPRAZOLE 40 MG TABLET PO SCH (10:00)
[2019-04-27] MEDS: THIAMINE 100 MG TABLET PO SCH (10:01)
[2019-04-27] MEDS: MEGESTROL 40 MG TABLET PO SCH ×2 (10:01→16:19)
[2019-04-27] MEDS: EPOETIN ALFA 10,000 UNIT/1 ML VIAL SUBCUT SCH (10:09)
[2019-04-27] MEDS: FUROSEMIDE 40 MG/4 ML VIAL IV SCH (10:11)
[2019-04-27] MEDS: cefTRIAXone 1,000 MG in SYRINGE 1 EACH IV SCH (10:17)
[2019-04-27] MEDS ORDERED: MAGNESIUM OXIDE 400 MG TABLET PO ONE (15:40)
[2019-04-27 16:06] VITALS: BP 105/65
== END 2019-04-27 17:40 | DRG 391 ==
LOC: N.EDINP 23:58 → N.ED 23:58 → SUATTDRO 04-13 01:54 → N.5E 04-13 02:54 → SUATTDRO 04-14 14:33
PROVIDERS: ADMIT Internal Medicine; ATTEND Family Medicine

== ENCOUNTER 2019-04-29 09:58 | Inpatient (IN) ==
[2019-04-29] MEDS ORDERED: SODIUM CHLORIDE 0.9% 1,000 ML IV STA (10:34)
[2019-04-29 10:56] LABS: Basophils % 0.4 % (0.0-0.8); Eosinophils % 0.8 % (0.00-10.9); Hematocrit 29.3 VOL% (35.7-47.0); Hemoglobin 9.4 GM/DL (12.0-16.0); Immature Granulocytes % 0.4 %; Immature Granulocytes Absolute 0.02 #; Lymphocytes # 0.6 10*3/uL (1.4-4.0); Lymphocytes % 12.9 % (21.3-54.2); Mean Corpuscular HGB Conc 32.1 GM/DL (32-36); Mean Corpuscular Volume 106.5 FL (87-102); Mean Platelet Volume 10.3 FL (9.6-12.0); Monocytes % 6.6 % (1.7-12.7); Neutrophils % 78.9 % (38.7-73.9); Platelet Count 136 T/CUMM (130-400); Red Blood Count 2.75 MC/CUMM (3.8-5.5); Red Cell Distribution Width 21.2 % (9.3-17.3)
[2019-04-29] MEDS ORDERED: APIXABAN 5 MG TABLET ONE (11:13)
[2019-04-29] MEDS ORDERED: APIXABAN 5 MG TABLET PO ONE (11:13)
[2019-04-29 11:14] LABS: Alanine Aminotransferase < 9 U/L (13-56); Albumin 1.6 G/DL (3.4-5.0); Alkaline Phosphatase 150 U/L (45-117); Aspartate Amino Transferase 8 U/L (0-37); Blood Urea Nitrogen 12 MG/DL (7-18); Calcium 7.8 MG/DL (8.5-10.1); Estimated Glom Filtration Rate 8 ML/MIN; Glucose 413 MG/DL (74-106); Osmolality,Calculated 291.7 MOS/KG (273-304); Total Protein 4.4 G/DL (6.4-8.3)
[2019-04-29] MEDS ORDERED: DEXTROSE 50% 25 GM/50 ML VIAL IV PRN (13:32)
[2019-04-29] MEDS ORDERED: DOCUSATE SODIUM 100 MG CAPSULE PO PRN (13:32)
[2019-04-29] MEDS ORDERED: SODIUM CHLORIDE 0.9% 1,000 ML IV SCH (14:00)
[2019-04-29] MEDS ORDERED: PANTOPRAZOLE 40 MG TABLET PO SCH (14:00)
[2019-04-29] MEDS: ESCITALOPRAM 10 MG TABLET PO SCH (15:53)
[2019-04-29] MEDS ORDERED: GLUCAGON 1 MG VIAL IM PRN (17:05)
[2019-04-29] MEDS: INSULIN LISPRO 100 UNIT/ML SUBCUT SCH ×2 (17:29→22:17)
[2019-04-29] MEDS: ENOXAPARIN 60 MG/0.6 ML SYRINGE SUBCUT SCH (17:30)
[2019-04-29 18:19] LABS: Hepatitis B Core IgM Quant < 0.05 Index; Hepatitis B Surface Ag Quant 0.16 Index; Hepatitis B Surface Ag Result Negative (Negative); Hepatitis C Virus Ab Quant 0.18 Index; Hepatitis C Virus Ab Result Negative (Negative)
[2019-04-29] MEDS: PANTOPRAZOLE 40 MG VIAL IV SCH (22:17)
[2019-04-30 05:32] LABS: Basophils % 0.6 % (0.0-0.8); Eosinophils # 0.3 10*3/uL (0.0-0.87); Eosinophils % 6.1 % (0.00-10.9); Hematocrit 25.6 VOL% (35.7-47.0); Hemoglobin 8.4 GM/DL (12.0-16.0); Immature Granulocytes % 0.4 %; Immature Granulocytes Absolute 0.02 #; Lymphocytes # 1.7 10*3/uL (1.4-4.0); Lymphocytes % 31.4 % (21.3-54.2); Mean Corpuscular HGB Conc 32.8 GM/DL (32-36); Mean Corpuscular Volume 102.8 FL (87-102); Mean Platelet Volume 10.2 FL (9.6-12.0); Monocytes % 11.5 % (1.7-12.7); NRBC # 0.05 10*3/uL; Platelet Count 139 T/CUMM (130-400); Red Blood Count 2.49 MC/CUMM (3.8-5.5); Red Cell Distribution Width 20.9 % (9.3-17.3); White Blood Count 5.4 T/CUMM (4-12)
[2019-04-30 05:52] LABS: Albumin 1.4 G/DL (3.4-5.0); Bilirubin,Total 1.1 MG/DL (0.2-1.0); Calcium 7.6 MG/DL (8.5-10.1); Osmolality,Calculated 275.8 MOS/KG (273-304)
[2019-04-30] MEDS ORDERED: CLINDAMYCIN INJ 900 MG in PREMIX 1 EACH IV ONE (06:00)
[2019-04-30] MEDS ORDERED: GLUCAGON 1 MG VIAL IM PRN (06:34)
[2019-04-30] MEDS: INSULIN LISPRO 100 UNIT/ML SUBCUT SCH ×5 (07:46→20:39)
[2019-04-30] MEDS ORDERED: SODIUM CHLORIDE 0.9% 250 ML IV SCH (09:30)
[2019-04-30] MEDS ORDERED: LIDOCAINE 1% 20 ML VIAL ONE (09:31)
[2019-04-30] MEDS ORDERED: HEPARIN 5,000 UNIT/1 ML VIAL ONE (09:31)
[2019-04-30] MEDS ORDERED: BUPIVACAINE MPF 0.25% 30 ML VIAL ONE (09:31)
[2019-04-30] MEDS: ESCITALOPRAM 10 MG TABLET PO SCH (10:23)
[2019-04-30] MEDS: PANTOPRAZOLE 40 MG VIAL IV SCH ×2 (10:24→20:40)
[2019-04-30] MEDS ORDERED: PROPOFOL 200 MG/20 ML VIAL IV ONE (10:33)
[2019-04-30] MEDS ORDERED: KETAMINE 500 MG/10 ML VIAL ONE (10:34)
[2019-04-30] MEDS ORDERED: fentaNYL 100 MCG/2 ML VIAL ONE (10:34)
[2019-04-30] MEDS ORDERED: GLYCOPYRROLATE 0.4 MG/2 ML VIAL ONE (10:34)
[2019-04-30] MEDS ORDERED: LIDOCAINE 2% 5 ML VIAL ONE (10:34)
[2019-04-30] MEDS ORDERED: ONDANSETRON 4 MG/2 ML VIAL ONE (10:44)
[2019-04-30] MEDS ORDERED: ONDANSETRON 4 MG/2 ML VIAL IV PRN (10:47)
[2019-04-30] MEDS ORDERED: HEPARIN 10,000 UNIT/10 ML VIAL IV SCH (15:00)
[2019-04-30] MEDS: ENOXAPARIN 60 MG/0.6 ML SYRINGE SUBCUT SCH (17:15)
[2019-04-30] MEDS ORDERED: ALBUMIN 25% 50 GM in PREMIX 1 EACH IV ONE (20:00)
[2019-05-01 07:52] LABS: Basophils % 0.5 % (0.0-0.8); Eosinophils # 0.1 10*3/uL (0.0-0.87); Eosinophils % 2.6 % (0.00-10.9); Hematocrit 25.2 VOL% (35.7-47.0); Hemoglobin 8.1 GM/DL (12.0-16.0); Immature Granulocytes % 0.5 %; Immature Granulocytes Absolute 0.02 #; Lymphocytes % 23.2 % (21.3-54.2); Mean Corpuscular HGB Conc 32.1 GM/DL (32-36); Mean Corpuscular Volume 106.8 FL (87-102); Mean Platelet Volume 10.8 FL (9.6-12.0); Monocytes % 12.2 % (1.7-12.7); NRBC # 0.02 10*3/uL; Platelet Count 147 T/CUMM (130-400); Red Blood Count 2.36 MC/CUMM (3.8-5.5); Red Cell Distribution Width 21.8 % (9.3-17.3); White Blood Count 4.2 T/CUMM (4-12)
[2019-05-01 07:54] LABS: Calcium 7.8 MG/DL (8.5-10.1); Osmolality,Calculated 280.8 MOS/KG (273-304)
[2019-05-01] MEDS ORDERED: MORPHINE 4 MG/1 ML VIAL ONE (08:49)
[2019-05-01] MEDS ORDERED: MORPHINE 4 MG/1 ML VIAL IV ONE (08:49)
[2019-05-01] MEDS ORDERED: NITROGLYCERIN SL 0.4 MG TABLET SL PRN (08:50)
[2019-05-01] MEDS ORDERED: ASPIRIN 325 MG TABLET PO ONE (08:51)
[2019-05-01] MEDS ORDERED: ASPIRIN CHEW 81 MG TABLET PO ONE (08:51)
[2019-05-01] MEDS: ONDANSETRON 4 MG/2 ML VIAL IV PRN (09:01)
[2019-05-01] MEDS: PANTOPRAZOLE 40 MG VIAL IV SCH ×2 (09:04→21:25)
[2019-05-01] MEDS: ESCITALOPRAM 10 MG TABLET PO SCH (09:04)
[2019-05-01] MEDS ORDERED: NITROGLYCERIN 2% OINT 1 INCH/GM PACK TOP ONE (09:04)
[2019-05-01] MEDS: INSULIN LISPRO 100 UNIT/ML SUBCUT SCH ×4 (09:05→20:21)
[2019-05-01] MEDS: NITROGLYCERIN 2% OINT 1 INCH/GM PACK TOP SCH ×2 (12:28→18:29)
[2019-05-01] MEDS: ENOXAPARIN 60 MG/0.6 ML SYRINGE SUBCUT SCH (18:29)
[2019-05-02] MEDS: MORPHINE 4 MG/1 ML VIAL IV PRN ×3 (01:11→18:55)
[2019-05-02] MEDS: NITROGLYCERIN 2% OINT 1 INCH/GM PACK TOP SCH ×4 (01:21→18:29)
[2019-05-02 05:55] LABS: Calcium 7.2 MG/DL (8.5-10.1); Osmolality,Calculated 280.3 MOS/KG (273-304)
[2019-05-02 06:34] LABS: Basophils % 0.6 % (0.0-0.8); Eosinophils # 0.2 10*3/uL (0.0-0.87); Eosinophils % 4.7 % (0.00-10.9); Hematocrit 21.7 VOL% (35.7-47.0); Immature Granulocytes % 0.2 %; Immature Granulocytes Absolute 0.01 #; Lymphocytes # 1.6 10*3/uL (1.4-4.0); Lymphocytes % 30.7 % (21.3-54.2); Mean Corpuscular HGB Conc 33.2 GM/DL (32-36); Mean Corpuscular Volume 104.8 FL (87-102); Mean Platelet Volume 10.3 FL (9.6-12.0); Monocytes % 14.5 % (1.7-12.7); NRBC # 0.02 10*3/uL; Neutrophils % 49.3 % (38.7-73.9); Platelet Count 174 T/CUMM (130-400); Red Blood Count 2.07 MC/CUMM (3.8-5.5); Red Cell Distribution Width 22.5 % (9.3-17.3); White Blood Count 5.1 T/CUMM (4-12)
[2019-05-02 06:38] LABS: Hemoglobin 7.2 GM/DL (12.0-16.0)
[2019-05-02 08:19] LABS: Apearance,Urine CLOUDY (Clear); Bilirubin,Urine Negative (Negative); Blood, Urine Small mg/dL (Negative); Glucose,Urine (UA) 50 mg/dL (Negative); Ketones,Urine 20 mg/dL (Negative); Nitrite,Urine Negative (Negative); Protein,Urine 100 MG/DL; RBC,Urine 2 /HPF (0-4); Squamous Epithelial Cell,Urine Few /HPF (0-10); Urine Color Yellow (Yellow); Urine Specific Gravity 1.023 (1.001-1.035); Urine Urobilinogen < 2.0 EU/DL (0.2-1.0); WBC,Urine 66 /HPF (0-6)
[2019-05-02] MEDS: ESCITALOPRAM 10 MG TABLET PO SCH (09:18)
[2019-05-02] MEDS: INSULIN LISPRO 100 UNIT/ML SUBCUT SCH ×4 (09:19→21:54)
[2019-05-02] MEDS: PANTOPRAZOLE 40 MG VIAL IV SCH ×2 (09:20→21:54)
[2019-05-02] MEDS ORDERED: SODIUM CHLORIDE 0.9% 1,000 ML IV PRN (12:32)
[2019-05-02] MEDS: cefTRIAXone 1,000 MG in SYRINGE 1 EACH IV SCH (18:29)
[2019-05-02 20:09] LABS: Hematocrit 26.8 VOL% (35.7-47.0)
[2019-05-03] MEDS: NITROGLYCERIN 2% OINT 1 INCH/GM PACK TOP SCH ×4 (01:10→19:07)
[2019-05-03 06:01] LABS: Basophils % 0.8 % (0.0-0.8); Eosinophils # 0.2 10*3/uL (0.0-0.87); Eosinophils % 4.9 % (0.00-10.9); Hemoglobin 8.4 GM/DL (12.0-16.0); Immature Granulocytes % 0.6 %; Immature Granulocytes Absolute 0.03 #; Lymphocytes # 1.3 10*3/uL (1.4-4.0); Lymphocytes % 27.4 % (21.3-54.2); Mean Corpuscular HGB Conc 32.3 GM/DL (32-36); Mean Corpuscular Volume 103.6 FL (87-102); Mean Platelet Volume 10.8 FL (9.6-12.0); Monocytes % 14.6 % (1.7-12.7); Neutrophils % 51.7 % (38.7-73.9); Platelet Count 184 T/CUMM (130-400); Red Blood Count 2.51 MC/CUMM (3.8-5.5); Red Cell Distribution Width 22.7 % (9.3-17.3); White Blood Count 4.7 T/CUMM (4-12)
[2019-05-03 06:20] LABS: Calcium 7.2 MG/DL (8.5-10.1); Osmolality,Calculated 278.5 MOS/KG (273-304)
[2019-05-03 06:48] LABS: Anisocytosis 2+; Macrocytosis 2+; Platelet Estimate Normal
[2019-05-03 06:49] LABS: Ovalocytes Few
[2019-05-03] MEDS ORDERED: TEMAZEPAM 15 MG CAPSULE PO PRN (07:31)
[2019-05-03] MEDS: ESCITALOPRAM 10 MG TABLET PO SCH ×2 (09:42→10:29)
[2019-05-03] MEDS: PANTOPRAZOLE 40 MG VIAL IV SCH ×2 (09:42→21:10)
[2019-05-03] MEDS: INSULIN LISPRO 100 UNIT/ML SUBCUT SCH ×4 (09:43→21:16)
[2019-05-03] MEDS: METOPROLOL SUCCINATE XL 25 MG TABLET PO SCH (13:02)
[2019-05-03] MEDS: MEGESTROL 40 MG TABLET PO SCH ×2 (16:25→21:15)
[2019-05-03] MEDS: cefTRIAXone 1,000 MG in SYRINGE 1 EACH IV SCH (16:26)
[2019-05-03] MEDS ORDERED: SIMVASTATIN 20 MG TABLET PO SCH (21:00)
[2019-05-04] MEDS: NITROGLYCERIN 2% OINT 1 INCH/GM PACK TOP SCH ×4 (01:22→19:16)
[2019-05-04 05:38] LABS: Basophils # 0.1 10*3/uL (0.0-0.2); Basophils % 0.9 % (0.0-0.8); Eosinophils # 0.4 10*3/uL (0.0-0.87); Eosinophils % 5.6 % (0.00-10.9); Hematocrit 30.8 VOL% (35.7-47.0); Hemoglobin 9.8 GM/DL (12.0-16.0); Immature Granulocytes % 0.6 %; Immature Granulocytes Absolute 0.04 #; Lymphocytes # 1.4 10*3/uL (1.4-4.0); Lymphocytes % 20.6 % (21.3-54.2); Mean Corpuscular HGB Conc 31.8 GM/DL (32-36); Mean Corpuscular Volume 105.8 FL (87-102); Mean Platelet Volume 10.3 FL (9.6-12.0); Monocytes % 10.6 % (1.7-12.7); Neutrophils % 61.7 % (38.7-73.9); Platelet Count 218 T/CUMM (130-400); Red Blood Count 2.91 MC/CUMM (3.8-5.5); Red Cell Distribution Width 23.3 % (9.3-17.3); White Blood Count 6.6 T/CUMM (4-12)
[2019-05-04] MEDS: LEVOTHYROXINE 150 MCG TABLET PO SCH (06:01)
[2019-05-04 06:04] LABS: Calcium 7.6 MG/DL (8.5-10.1); Osmolality,Calculated 288.7 MOS/KG (273-304)
[2019-05-04 06:22] LABS: Platelet Estimate Normal
[2019-05-04 06:23] LABS: Anisocytosis 2+; Macrocytosis 1+; Poikilocytosis Slight; Polychromasia Slight
[2019-05-04] MEDS: ONDANSETRON 4 MG/2 ML VIAL IV PRN (07:22)
[2019-05-04] MEDS: PANTOPRAZOLE 40 MG VIAL IV SCH ×2 (08:05→21:42)
[2019-05-04] MEDS: INSULIN LISPRO 100 UNIT/ML SUBCUT SCH ×4 (08:31→19:15)
[2019-05-04] MEDS: MEGESTROL 40 MG TABLET PO SCH ×3 (08:32→21:42)
[2019-05-04] MEDS: METOPROLOL SUCCINATE XL 25 MG TABLET PO SCH (08:32)
[2019-05-04] MEDS: ESCITALOPRAM 10 MG TABLET PO SCH (08:32)
[2019-05-04] MEDS ORDERED: ASPIRIN EC 81 MG TABLET PO SCH (09:00)
[2019-05-04] MEDS: cefTRIAXone 1,000 MG in SYRINGE 1 EACH IV SCH (12:56)
[2019-05-04] MEDS ORDERED: SODIUM CHLORIDE 0.9% 500 ML IV ONE (15:30)
[2019-05-04] MEDS: SODIUM CHLORIDE 0.9% 1,000 ML IV SCH ×2 (15:36→17:07)
[2019-05-04 15:40] LABS: Basophils # 0.1 10*3/uL (0.0-0.2); Basophils % 0.9 % (0.0-0.8); Calcium 7.7 MG/DL (8.5-10.1); Eosinophils # 0.2 10*3/uL (0.0-0.87); Eosinophils % 1.4 % (0.00-10.9); Hematocrit 32.9 VOL% (35.7-47.0); Immature Granulocytes % 5.7 %; Immature Granulocytes Absolute 0.76 #; Lymphocytes % 15.3 % (21.3-54.2); Mean Corpuscular HGB Conc 29.2 GM/DL (32-36); Mean Corpuscular Volume 115.8 FL (87-102); Monocytes % 9.2 % (1.7-12.7); NRBC # 0.02 10*3/uL; Neutrophils % 67.5 % (38.7-73.9); Osmolality,Calculated 297.4 MOS/KG (273-304); Platelet Count 333 T/CUMM (130-400); Red Blood Count 2.84 MC/CUMM (3.8-5.5); Red Cell Distribution Width 23.9 % (9.3-17.3); White Blood Count 13.2 T/CUMM (4-12)
[2019-05-04 15:42] LABS: Hemoglobin 9.6 GM/DL (12.0-16.0)
[2019-05-04] MEDS ORDERED: NOREPINEPHRINE 8 MG in SODIUM CHLORIDE 0.9% 242 ML IV PRN (15:47)
[2019-05-04] MEDS ORDERED: NOREPINEPHRINE 4 MG/4 ML VIAL IV ONE (15:47)
[2019-05-04] MEDS ORDERED: ETOMIDATE 20 MG/10 ML VIAL IV ONE (15:55)
[2019-05-04] MEDS ORDERED: HEPARIN DRIP 25,000 UNITS/500 ML PREMIX IV SCH (16:00)
[2019-05-04 16:05] LABS: Troponin I 0.018 NG/ML (0.00-0.045)
[2019-05-04 16:30] LABS: ABG Base Excess -23.5 MMOL/L (-2.5-2.5); ABG HCO3 7.6 MMOL/L (20-26); ABG Oxygen Saturation 98.5 % (95-100); ABG PCO2 22.6 MM HG (35-48); ABG TCO2 5.9 MMOL/L (23-27); Allen Test Positive; Pt O2 Delivery Device Ventilator
[2019-05-04 16:35] LABS: ABG PH 7.036 (7.35-7.45)
[2019-05-04] MEDS ORDERED: VANCOMYCIN INJ 1,250 MG in SODIUM CHLORIDE 0.9% 250 ML IV ONE (17:00)
[2019-05-04 17:26] LABS: Band Neutrophils 5 % (0-10); Eosinophils 2 % (0-10); Lymphocytes 14 % (20-55); Metamyelocytes 2 %; Myelocytes 5 %; Segmented Neutrophils 64 % (50-85); Total Cells Counted 100
[2019-05-04 17:27] LABS: Anisocytosis 3+; Macrocytosis 3+; Microcytosis 1+; Polychromasia Slight
[2019-05-04 17:40] LABS: Platelet Estimate Normal
[2019-05-04] MEDS: INSULIN REGULAR DRIP 100 ML IV PRN (18:11)
[2019-05-04] MEDS: SODIUM BICARB INJ 50 MEQ in SODIUM CHLORIDE 0.45% 1,000 ML IV SCH (18:12)
[2019-05-04 18:20] LABS: INR 1.2; PT Patient Result 12.7 SECS (9.6-12.2)
[2019-05-04 18:23] LABS: Partial Thromboplastin Time 190.7 SECS (20.8-36.0)
[2019-05-04] MEDS: PIPERACILLIN/TAZOBACTAM 3,375 MG in SODIUM CHLORIDE 0.9% 100 ML IV SCH (19:16)
[2019-05-04] MEDS: INSULIN REGULAR 100 UNIT/ML IV PRN ×2 (20:04→22:08)
[2019-05-04] MEDS: MORPHINE 4 MG/1 ML VIAL IM PRN (20:36)
[2019-05-05] MEDS: NITROGLYCERIN 2% OINT 1 INCH/GM PACK TOP SCH ×5 (00:05→23:59)
[2019-05-05] MEDS: INSULIN REGULAR 100 UNIT/ML IV PRN (00:07)
[2019-05-05] MEDS: MORPHINE 4 MG/1 ML VIAL IM PRN (03:44)
[2019-05-05 04:13] LABS: Basophils % 0.3 % (0.0-0.8); Eosinophils # 0.1 10*3/uL (0.0-0.87); Eosinophils % 1.5 % (0.00-10.9); Hematocrit 25.4 VOL% (35.7-47.0); Hemoglobin 8.4 GM/DL (12.0-16.0); Immature Granulocytes % 2.1 %; Immature Granulocytes Absolute 0.19 #; Lymphocytes # 1.9 10*3/uL (1.4-4.0); Lymphocytes % 21.5 % (21.3-54.2); Mean Corpuscular HGB Conc 33.1 GM/DL (32-36); Mean Corpuscular Volume 102.8 FL (87-102); Monocytes % 16.2 % (1.7-12.7); Neutrophils % 58.4 % (38.7-73.9); Platelet Count 235 T/CUMM (130-400); Red Blood Count 2.47 MC/CUMM (3.8-5.5); Red Cell Distribution Width 22.3 % (9.3-17.3); White Blood Count 8.9 T/CUMM (4-12)
[2019-05-05 04:14] LABS: Allen Test Positive; Pt O2 Delivery Device Ventilator
[2019-05-05 04:15] LABS: ABG Base Excess 2.3 MMOL/L (-2.5-2.5); ABG HCO3 26.5 MMOL/L (20-26); ABG PCO2 33.1 MM HG (35-48); ABG PH 7.493 (7.35-7.45); ABG TCO2 23.5 MMOL/L (23-27)
[2019-05-05] MEDS: SODIUM BICARB INJ 50 MEQ in SODIUM CHLORIDE 0.45% 1,000 ML IV SCH (04:21)
[2019-05-05] MEDS: PIPERACILLIN/TAZOBACTAM 3,375 MG in SODIUM CHLORIDE 0.9% 100 ML IV SCH ×2 (04:22→17:00)
[2019-05-05 05:05] LABS: Band Neutrophils 5 % (0-10); Metamyelocytes 2 %
[2019-05-05 05:07] LABS: Segmented Neutrophils 60 % (50-85)
[2019-05-05 05:08] LABS: Anisocytosis 2+; Hypochromasia 1+; Lymphocytes 21 % (20-55); Macrocytosis 2+; Platelet Estimate Normal; Target Cells 1+; Total Cells Counted 100
[2019-05-05] MEDS: LEVOTHYROXINE 150 MCG TABLET PO SCH (06:22)
[2019-05-05] MEDS ORDERED: PROPOFOL 0 MG/0 ML BOTTLE IV ONE (06:52)
[2019-05-05] MEDS: fentaNYL INJ 1,250 MCG in SODIUM CHLORIDE 0.9% 225 ML IV PRN (07:17)
[2019-05-05] MEDS: POTASSIUM CHLORIDE RIDER 10 MEQ in PREMIX 1 EACH IV PRN ×3 (07:20→16:55)
[2019-05-05] MEDS: INSULIN REGULAR DRIP 100 ML IV PRN (09:40)
[2019-05-05] MEDS: PANTOPRAZOLE 40 MG VIAL IV SCH ×2 (09:42→22:08)
[2019-05-05] MEDS: ASPIRIN CHEW 81 MG TABLET PO SCH (09:45)
[2019-05-05] MEDS: MEGESTROL 40 MG TABLET PO SCH ×2 (09:46→15:10)
[2019-05-05] MEDS: ESCITALOPRAM 10 MG TABLET PO SCH (09:46)
[2019-05-05] MEDS: METOPROLOL SUCCINATE XL 25 MG TABLET PO SCH (09:48)
[2019-05-05 09:59] LABS: Calcium 6.8 MG/DL (8.5-10.1)
[2019-05-05] MEDS ORDERED: INSULIN REGULAR 100 UNIT/ML IV ONE (10:22)
[2019-05-05] MEDS ORDERED: DEXTROSE 5% NACL 0.45% 1,000 ML IV SCH (10:30)
[2019-05-05] MEDS: APIXABAN 5 MG TABLET PER TUBE SCH ×2 (10:51→22:08)
[2019-05-05] MEDS: DEXTROSE 10% 250 ML BAG IV PRN (11:50)
[2019-05-05] MEDS: DESITIN 4OZ/NYSTATIN 15 GRAM MIXTURE PASTE TOP SCH ×2 (15:10→22:08)
[2019-05-05 15:29] LABS: Calcium 6.6 MG/DL (8.5-10.1); Osmolality,Calculated 285.3 MOS/KG (273-304)
[2019-05-05] MEDS ORDERED: DEXTROSE 50% 25 GM/50 ML VIAL IV PRN (16:16)
[2019-05-05] MEDS ORDERED: CALCIUM GLUCONATE 2,000 MG in SODIUM CHLORIDE 0.9% 100 ML IV ONE (16:20)
[2019-05-05] MEDS: INSULIN LISPRO 100 UNIT/ML SUBCUT SCH ×3 (16:30→23:58)
[2019-05-05] MEDS ORDERED: VANCOMYCIN INJ 500 MG in SODIUM CHLORIDE 0.9% 100 ML IV ONE (17:00)
[2019-05-05] MEDS ORDERED: VANCOMYCIN INJ 500 MG in SODIUM CHLORIDE 0.9% 250 ML IV PRN (17:00)
[2019-05-05] MEDS: CALCIUM ACETATE 667 MG CAPSULE PO SCH (17:14)
[2019-05-05] MEDS: SODIUM BICARBONATE 650 MG TABLET PO SCH (22:08)
[2019-05-05] MEDS: CALCIUM CARBONATE CHEW 500 MG TABLET PO SCH (22:08)
[2019-05-05 22:31] LABS: Calcium 7.5 MG/DL (8.5-10.1); Osmolality,Calculated 283.4 MOS/KG (273-304)
[2019-05-06 04:07] LABS: Basophils % 0.7 % (0.0-0.8); Eosinophils # 0.1 10*3/uL (0.0-0.87); Eosinophils % 1.5 % (0.00-10.9); Hematocrit 25.4 VOL% (35.7-47.0); Hemoglobin 8.5 GM/DL (12.0-16.0); Immature Granulocytes % 0.8 %; Immature Granulocytes Absolute 0.05 #; Lymphocytes % 16.9 % (21.3-54.2); Mean Corpuscular HGB Conc 33.5 GM/DL (32-36); Mean Corpuscular Volume 101.2 FL (87-102); Mean Platelet Volume 9.9 FL (9.6-12.0); Monocytes % 11.9 % (1.7-12.7); Neutrophils % 68.2 % (38.7-73.9); Platelet Count 183 T/CUMM (130-400); Red Blood Count 2.51 MC/CUMM (3.8-5.5); Red Cell Distribution Width 22.1 % (9.3-17.3); White Blood Count 6.1 T/CUMM (4-12)
[2019-05-06 04:19] LABS: Osmolality,Calculated 276.5 MOS/KG (273-304)
[2019-05-06] MEDS: INSULIN LISPRO 100 UNIT/ML SUBCUT SCH ×5 (04:22→21:06)
[2019-05-06 04:35] LABS: ABG Base Excess 3.6 MMOL/L (-2.5-2.5); ABG HCO3 27.7 MMOL/L (20-26); ABG Oxygen Saturation 99.9 % (95-100); ABG PCO2 29.4 MM HG (35-48); ABG PH 7.548 (7.35-7.45); ABG TCO2 23.3 MMOL/L (23-27); Allen Test Positive; Pt O2 Delivery Device Ventilator
[2019-05-06] MEDS: fentaNYL INJ 1,250 MCG in SODIUM CHLORIDE 0.9% 225 ML IV PRN ×2 (04:35→19:00)
[2019-05-06 04:53] LABS: Hypochromasia 1+
[2019-05-06 04:54] LABS: Anisocytosis 1+; Macrocytosis 1+
[2019-05-06 04:55] LABS: Ovalocytes Slight; Target Cells Few
[2019-05-06] MEDS: PIPERACILLIN/TAZOBACTAM 3,375 MG in SODIUM CHLORIDE 0.9% 100 ML IV SCH ×2 (05:47→16:22)
[2019-05-06] MEDS: LEVOTHYROXINE 150 MCG TABLET PO SCH (05:48)
[2019-05-06] MEDS: POTASSIUM CHLORIDE RIDER 10 MEQ in PREMIX 1 EACH IV PRN ×3 (05:48→07:50)
[2019-05-06] MEDS: NITROGLYCERIN 2% OINT 1 INCH/GM PACK TOP SCH ×3 (06:42→17:58)
[2019-05-06] MEDS: METOPROLOL SUCCINATE XL 25 MG TABLET PO SCH ×2 (08:03→12:14)
[2019-05-06] MEDS: CALCIUM CARBONATE CHEW 500 MG TABLET PO SCH ×3 (08:13→21:06)
[2019-05-06] MEDS: APIXABAN 5 MG TABLET PER TUBE SCH ×2 (08:14→21:06)
[2019-05-06] MEDS: SODIUM BICARBONATE 650 MG TABLET PO SCH ×3 (08:14→21:05)
[2019-05-06] MEDS: THIAMINE 100 MG TABLET PO SCH (08:14)
[2019-05-06] MEDS: CALCIUM ACETATE 667 MG CAPSULE PO SCH ×3 (08:14→16:22)
[2019-05-06] MEDS: PANTOPRAZOLE 40 MG VIAL IV SCH (08:15)
[2019-05-06] MEDS: ESCITALOPRAM 10 MG TABLET PO SCH (08:15)
[2019-05-06] MEDS: DESITIN 4OZ/NYSTATIN 15 GRAM MIXTURE PASTE TOP SCH ×2 (08:15→21:06)
[2019-05-06] MEDS: ASPIRIN CHEW 81 MG TABLET PO SCH (08:15)
[2019-05-06] MEDS: POTASSIUM CHLORIDE 20 MEQ TABLET PO SCH (08:15)
[2019-05-06] MEDS ORDERED: MAGNESIUM SULF RIDER 2 GM in PREMIX 1 EACH IV ONE ×2 (09:30→15:26)
[2019-05-06] MEDS: EPOETIN ALFA 10,000 UNIT/1 ML VIAL SUBCUT SCH (10:42)
[2019-05-06] MEDS ORDERED: POTASSIUM PHOSPHATE 30 MMOL in SODIUM CHLORIDE 0.9% 250 ML IV ONE (11:00)
[2019-05-06 11:30] LABS: Osmolality,Calculated 279.7 MOS/KG (273-304)
[2019-05-06 16:32] LABS: Osmolality,Calculated 274.8 MOS/KG (273-304)
[2019-05-06] MEDS: ONDANSETRON 4 MG/2 ML VIAL IV PRN (17:51)
[2019-05-07] MEDS: INSULIN LISPRO 100 UNIT/ML SUBCUT SCH ×6 (00:43→20:15)
[2019-05-07] MEDS: NITROGLYCERIN 2% OINT 1 INCH/GM PACK TOP SCH ×6 (00:43→23:58)
[2019-05-07 04:00] LABS: Allen Test Positive; Pt O2 Delivery Device Ventilator
[2019-05-07 04:01] LABS: ABG Base Excess -0.7 MMOL/L (-2.5-2.5); ABG HCO3 23.9 MMOL/L (20-26); ABG Oxygen Saturation 98.4 % (95-100); ABG PH 7.413 (7.35-7.45); ABG TCO2 21.4 MMOL/L (23-27)
[2019-05-07 04:35] LABS: Basophils # 0.1 10*3/uL (0.0-0.2); Basophils % 0.8 % (0.0-0.8); Eosinophils # 0.2 10*3/uL (0.0-0.87); Eosinophils % 2.7 % (0.00-10.9); Hematocrit 27.1 VOL% (35.7-47.0); Hemoglobin 8.8 GM/DL (12.0-16.0); Immature Granulocytes % 0.8 %; Immature Granulocytes Absolute 0.05 #; Lymphocytes # 0.9 10*3/uL (1.4-4.0); Lymphocytes % 14.7 % (21.3-54.2); Mean Corpuscular HGB Conc 32.5 GM/DL (32-36); Mean Corpuscular Volume 103.8 FL (87-102); Mean Platelet Volume 10.1 FL (9.6-12.0); Monocytes % 10.3 % (1.7-12.7); Neutrophils % 70.7 % (38.7-73.9); Platelet Count 187 T/CUMM (130-400); Red Blood Count 2.61 MC/CUMM (3.8-5.5); Red Cell Distribution Width 22.1 % (9.3-17.3); White Blood Count 6.4 T/CUMM (4-12)
[2019-05-07 04:55] LABS: Hypochromasia 1+; Platelet Estimate Normal; Polychromasia Few
[2019-05-07] MEDS: PIPERACILLIN/TAZOBACTAM 3,375 MG in SODIUM CHLORIDE 0.9% 100 ML IV SCH ×2 (05:59→20:35)
[2019-05-07] MEDS: LEVOTHYROXINE 150 MCG TABLET PO SCH (06:00)
[2019-05-07] MEDS: fentaNYL INJ 1,250 MCG in SODIUM CHLORIDE 0.9% 225 ML IV PRN (07:41)
[2019-05-07] MEDS: CALCIUM CARBONATE CHEW 500 MG TABLET PO SCH ×3 (09:40→20:15)
[2019-05-07] MEDS: SODIUM BICARBONATE 650 MG TABLET PO SCH ×3 (09:40→20:15)
[2019-05-07] MEDS: THIAMINE 100 MG TABLET PO SCH (09:41)
[2019-05-07] MEDS: APIXABAN 5 MG TABLET PER TUBE SCH ×2 (09:41→20:16)
[2019-05-07] MEDS: LANSOPRAZOLE ODT 30 MG TABLET PO SCH (09:41)
[2019-05-07] MEDS: ASPIRIN CHEW 81 MG TABLET PO SCH (09:42)
[2019-05-07] MEDS: ESCITALOPRAM 10 MG TABLET PO SCH (09:42)
[2019-05-07] MEDS: CALCIUM ACETATE 667 MG CAPSULE PO SCH ×3 (09:42→16:22)
[2019-05-07] MEDS: POTASSIUM CHLORIDE 20 MEQ TABLET PO SCH (09:42)
[2019-05-07] MEDS: METOCLOPRAMIDE 10 MG/2 ML VIAL IV SCH ×3 (09:42→20:43)
[2019-05-07] MEDS: DESITIN 4OZ/NYSTATIN 15 GRAM MIXTURE PASTE TOP SCH ×2 (09:44→20:43)
[2019-05-07] MEDS: PROPOFOL 1,000 MG/100 ML BOTTLE IV SCH ×2 (10:05→22:05)
[2019-05-07] MEDS: METOPROLOL SUCCINATE XL 25 MG TABLET PO SCH (11:27)
[2019-05-07] MEDS ORDERED: VANCOMYCIN INJ 500 MG in SODIUM CHLORIDE 0.9% 100 ML IV ONE (17:00)
[2019-05-08] MEDS: INSULIN LISPRO 100 UNIT/ML SUBCUT SCH ×7 (00:27→23:44)
[2019-05-08 03:38] LABS: ABG Base Excess 2.8 MMOL/L (-2.5-2.5); ABG Oxygen Saturation 99.8 % (95-100); ABG TCO2 19.6 MMOL/L (23-27)
[2019-05-08 03:40] LABS: ABG PCO2 20.4 MM HG (35-48)
[2019-05-08 03:41] LABS: ABG PH 7.644 (7.35-7.45)
[2019-05-08 03:56] LABS: Basophils # 0.1 10*3/uL (0.0-0.2); Basophils % 1.1 % (0.0-0.8); Eosinophils # 0.1 10*3/uL (0.0-0.87); Eosinophils % 1.5 % (0.00-10.9); Hematocrit 25.8 VOL% (35.7-47.0); Hemoglobin 8.5 GM/DL (12.0-16.0); Immature Granulocytes % 0.8 %; Immature Granulocytes Absolute 0.05 #; Lymphocytes # 1.3 10*3/uL (1.4-4.0); Lymphocytes % 19.6 % (21.3-54.2); Mean Corpuscular HGB Conc 32.9 GM/DL (32-36); Mean Corpuscular Volume 102.4 FL (87-102); Mean Platelet Volume 10.9 FL (9.6-12.0); Monocytes % 8.6 % (1.7-12.7); Neutrophils % 68.4 % (38.7-73.9); Platelet Count 184 T/CUMM (130-400); Red Blood Count 2.52 MC/CUMM (3.8-5.5); Red Cell Distribution Width 21.2 % (9.3-17.3); White Blood Count 6.5 T/CUMM (4-12)
[2019-05-08] MEDS: METOCLOPRAMIDE 10 MG/2 ML VIAL IV SCH (04:02)
[2019-05-08 04:03] LABS: Calcium 6.9 MG/DL (8.5-10.1); Osmolality,Calculated 277.8 MOS/KG (273-304)
[2019-05-08] MEDS: MORPHINE 4 MG/1 ML VIAL IM PRN (04:04)
[2019-05-08] MEDS: NITROGLYCERIN 2% OINT 1 INCH/GM PACK TOP SCH (06:12)
[2019-05-08] MEDS: LEVOTHYROXINE 150 MCG TABLET PO SCH (06:19)
[2019-05-08] MEDS: SODIUM BICARBONATE 650 MG TABLET PO SCH ×3 (08:17→20:25)
[2019-05-08] MEDS: APIXABAN 5 MG TABLET PER TUBE SCH ×2 (08:18→20:25)
[2019-05-08] MEDS: METOPROLOL SUCCINATE XL 25 MG TABLET PO SCH (08:18)
[2019-05-08] MEDS: LANSOPRAZOLE ODT 30 MG TABLET PO SCH (08:18)
[2019-05-08] MEDS: POTASSIUM CHLORIDE 20 MEQ TABLET PO SCH (08:18)
[2019-05-08] MEDS: ASPIRIN CHEW 81 MG TABLET PO SCH (08:18)
[2019-05-08] MEDS: THIAMINE 100 MG TABLET PO SCH (08:18)
[2019-05-08] MEDS: CALCIUM CARBONATE CHEW 500 MG TABLET PO SCH ×3 (08:18→20:25)
[2019-05-08] MEDS: ESCITALOPRAM 10 MG TABLET PO SCH (08:18)
[2019-05-08] MEDS: CALCIUM ACETATE 667 MG CAPSULE PO SCH ×3 (08:18→16:44)
[2019-05-08] MEDS: PIPERACILLIN/TAZOBACTAM 3,375 MG in SODIUM CHLORIDE 0.9% 100 ML IV SCH ×2 (08:19→20:24)
[2019-05-08] MEDS: PROPOFOL 1,000 MG/100 ML BOTTLE IV SCH ×2 (08:21→20:31)
[2019-05-08] MEDS: DESITIN 4OZ/NYSTATIN 15 GRAM MIXTURE PASTE TOP SCH ×2 (08:24→20:25)
[2019-05-08] MEDS: EPOETIN ALFA 10,000 UNIT/1 ML VIAL SUBCUT SCH ×2 (09:44→15:38)
[2019-05-09] MEDS: INSULIN LISPRO 100 UNIT/ML SUBCUT SCH ×5 (04:02→19:50)
[2019-05-09 04:06] LABS: Basophils # 0.1 10*3/uL (0.0-0.2); Basophils % 0.6 % (0.0-0.8); Eosinophils # 0.2 10*3/uL (0.0-0.87); Eosinophils % 2.9 % (0.00-10.9); Hematocrit 25.1 VOL% (35.7-47.0); Hemoglobin 8.2 GM/DL (12.0-16.0); Immature Granulocytes % 0.6 %; Immature Granulocytes Absolute 0.05 #; Lymphocytes # 1.1 10*3/uL (1.4-4.0); Lymphocytes % 13.7 % (21.3-54.2); Mean Corpuscular HGB Conc 32.7 GM/DL (32-36); Mean Platelet Volume 10.8 FL (9.6-12.0); Monocytes % 9.1 % (1.7-12.7); NRBC # 0.02 10*3/uL; Neutrophils % 73.1 % (38.7-73.9); Platelet Count 199 T/CUMM (130-400); Red Blood Count 2.39 MC/CUMM (3.8-5.5); Red Cell Distribution Width 21.7 % (9.3-17.3); White Blood Count 7.9 T/CUMM (4-12)
[2019-05-09 04:23] LABS: ABG Base Excess 2.2 MMOL/L (-2.5-2.5); ABG HCO3 26.4 MMOL/L (20-26); ABG Oxygen Saturation 99.7 % (95-100); ABG PCO2 32.5 MM HG (35-48); ABG PH 7.498 (7.35-7.45); ABG TCO2 23.4 MMOL/L (23-27); Allen Test Positive; Pt O2 Delivery Device Ventilator
[2019-05-09 04:24] LABS: Calcium 7.1 MG/DL (8.5-10.1); Osmolality,Calculated 283.5 MOS/KG (273-304)
[2019-05-09] MEDS: PROPOFOL 1,000 MG/100 ML BOTTLE IV SCH ×2 (04:25→13:08)
[2019-05-09] MEDS: LEVOTHYROXINE 150 MCG TABLET PO SCH (06:10)
[2019-05-09] MEDS: PIPERACILLIN/TAZOBACTAM 3,375 MG in SODIUM CHLORIDE 0.9% 100 ML IV SCH ×2 (09:30→20:08)
[2019-05-09] MEDS: CALCIUM ACETATE 667 MG CAPSULE PO SCH ×3 (10:52→16:39)
[2019-05-09] MEDS: APIXABAN 5 MG TABLET PER TUBE SCH ×2 (10:53→20:07)
[2019-05-09] MEDS: ASPIRIN CHEW 81 MG TABLET PO SCH (10:53)
[2019-05-09] MEDS: DESITIN 4OZ/NYSTATIN 15 GRAM MIXTURE PASTE TOP SCH ×2 (10:54→20:08)
[2019-05-09] MEDS: LANSOPRAZOLE ODT 30 MG TABLET PO SCH (10:54)
[2019-05-09] MEDS: ESCITALOPRAM 10 MG TABLET PO SCH (10:54)
[2019-05-09] MEDS: METOPROLOL SUCCINATE XL 25 MG TABLET PO SCH (10:55)
[2019-05-09] MEDS: SODIUM BICARBONATE 650 MG TABLET PO SCH ×3 (10:55→20:07)
[2019-05-09] MEDS: CALCIUM CARBONATE CHEW 500 MG TABLET PO SCH ×3 (10:55→20:07)
[2019-05-09] MEDS: THIAMINE 100 MG TABLET PO SCH (10:56)
[2019-05-09] MEDS: EPOETIN ALFA 10,000 UNIT/1 ML VIAL SUBCUT SCH (11:04)
[2019-05-09] MEDS: DEXMEDETOMIDINE 200 MCG in SODIUM CHLORIDE 0.9% 48 ML IV PRN (16:20)
[2019-05-09] MEDS ORDERED: VANCOMYCIN INJ 500 MG in SODIUM CHLORIDE 0.9% 100 ML IV ONE (18:00)
[2019-05-10] MEDS: INSULIN LISPRO 100 UNIT/ML SUBCUT SCH ×7 (00:21→23:40)
[2019-05-10 04:27] LABS: Basophils # 0.1 10*3/uL (0.0-0.2); Basophils % 0.7 % (0.0-0.8); Eosinophils # 0.2 10*3/uL (0.0-0.87); Eosinophils % 1.9 % (0.00-10.9); Hematocrit 24.5 VOL% (35.7-47.0); Immature Granulocytes Absolute 0.08 #; Lymphocytes # 1.5 10*3/uL (1.4-4.0); Lymphocytes % 18.4 % (21.3-54.2); Mean Corpuscular HGB Conc 32.7 GM/DL (32-36); Mean Corpuscular Volume 103.8 FL (87-102); Mean Platelet Volume 10.7 FL (9.6-12.0); Monocytes % 9.4 % (1.7-12.7); NRBC # 0.04 10*3/uL; Neutrophils % 68.6 % (38.7-73.9); Platelet Count 281 T/CUMM (130-400); Red Blood Count 2.36 MC/CUMM (3.8-5.5); Red Cell Distribution Width 21.3 % (9.3-17.3); White Blood Count 8.1 T/CUMM (4-12)
[2019-05-10 04:28] LABS: ABG Base Excess 2.5 MMOL/L (-2.5-2.5); ABG HCO3 26.7 MMOL/L (20-26); Allen Test Positive; Pt O2 Delivery Device Ventilator
[2019-05-10] MEDS: DEXMEDETOMIDINE 200 MCG in SODIUM CHLORIDE 0.9% 48 ML IV PRN ×3 (04:28→23:00)
[2019-05-10 04:32] LABS: ABG PCO2 18.2 MM HG (35-48); ABG PH 7.686 (7.35-7.45)
[2019-05-10 04:44] LABS: Calcium 7.2 MG/DL (8.5-10.1); Osmolality,Calculated 290.5 MOS/KG (273-304)
[2019-05-10] MEDS: LEVOTHYROXINE 150 MCG TABLET PO SCH (05:40)
[2019-05-10] MEDS: CALCIUM ACETATE 667 MG CAPSULE PO SCH ×3 (08:14→17:22)
[2019-05-10] MEDS: CALCIUM CARBONATE CHEW 500 MG TABLET PO SCH ×3 (08:14→20:17)
[2019-05-10] MEDS: SODIUM BICARBONATE 650 MG TABLET PO SCH (08:14)
[2019-05-10] MEDS: ASPIRIN CHEW 81 MG TABLET PO SCH (08:15)
[2019-05-10] MEDS: ESCITALOPRAM 10 MG TABLET PO SCH (08:15)
[2019-05-10] MEDS: APIXABAN 5 MG TABLET PER TUBE SCH ×2 (08:15→20:17)
[2019-05-10] MEDS: METOPROLOL SUCCINATE XL 25 MG TABLET PO SCH (08:15)
[2019-05-10] MEDS: LANSOPRAZOLE ODT 30 MG TABLET PO SCH (08:16)
[2019-05-10] MEDS: DESITIN 4OZ/NYSTATIN 15 GRAM MIXTURE PASTE TOP SCH ×2 (08:16→20:18)
[2019-05-10] MEDS: THIAMINE 100 MG TABLET PO SCH (08:16)
[2019-05-10] MEDS: PIPERACILLIN/TAZOBACTAM 3,375 MG in SODIUM CHLORIDE 0.9% 100 ML IV SCH ×2 (08:33→20:18)
[2019-05-10] MEDS: PROPOFOL 1,000 MG/100 ML BOTTLE IV SCH (08:50)
[2019-05-10] MEDS: DEXTROSE 10% 250 ML BAG IV PRN (16:20)
[2019-05-11 04:13] LABS: ABG Base Excess 5.2 MMOL/L (-2.5-2.5); ABG HCO3 29.2 MMOL/L (20-26); ABG PCO2 21.1 MM HG (35-48); ABG TCO2 21.9 MMOL/L (23-27); Allen Test Positive; Pt O2 Delivery Device Ventilator
[2019-05-11 04:18] LABS: ABG PH 7.675 (7.35-7.45)
[2019-05-11] MEDS: INSULIN LISPRO 100 UNIT/ML SUBCUT SCH ×5 (04:31→21:33)
[2019-05-11] MEDS: DEXMEDETOMIDINE 200 MCG in SODIUM CHLORIDE 0.9% 48 ML IV PRN ×4 (05:08→22:35)
[2019-05-11 05:20] LABS: Basophils % 0.6 % (0.0-0.8); Eosinophils # 0.2 10*3/uL (0.0-0.87); Eosinophils % 2.9 % (0.00-10.9); Hematocrit 24.8 VOL% (35.7-47.0); Hemoglobin 8.1 GM/DL (12.0-16.0); Immature Granulocytes % 1.5 %; Lymphocytes # 1.2 10*3/uL (1.4-4.0); Lymphocytes % 18.8 % (21.3-54.2); Mean Corpuscular HGB Conc 32.7 GM/DL (32-36); Mean Corpuscular Volume 103.3 FL (87-102); Mean Platelet Volume 10.7 FL (9.6-12.0); Monocytes % 11.5 % (1.7-12.7); NRBC # 0.03 10*3/uL; Neutrophils % 64.7 % (38.7-73.9); Platelet Count 304 T/CUMM (130-400); Red Cell Distribution Width 21.1 % (9.3-17.3); White Blood Count 6.5 T/CUMM (4-12)
[2019-05-11 05:31] LABS: Calcium 7.8 MG/DL (8.5-10.1); Osmolality,Calculated 296.3 MOS/KG (273-304)
[2019-05-11] MEDS: LEVOTHYROXINE 150 MCG TABLET PO SCH (05:32)
[2019-05-11 05:36] LABS: Prealbumin 11.4 MG/DL (20-40)
[2019-05-11] MEDS: PROPOFOL 1,000 MG/100 ML BOTTLE IV SCH (07:38)
[2019-05-11] MEDS: CALCIUM ACETATE 667 MG CAPSULE PO SCH ×3 (09:09→17:39)
[2019-05-11] MEDS: ASPIRIN CHEW 81 MG TABLET PO SCH (09:10)
[2019-05-11] MEDS: APIXABAN 5 MG TABLET PER TUBE SCH ×2 (09:10→21:33)
[2019-05-11] MEDS: METOPROLOL SUCCINATE XL 25 MG TABLET PO SCH (09:11)
[2019-05-11] MEDS: ESCITALOPRAM 10 MG TABLET PO SCH (09:11)
[2019-05-11] MEDS: LANSOPRAZOLE ODT 30 MG TABLET PO SCH (09:11)
[2019-05-11] MEDS: CALCIUM CARBONATE CHEW 500 MG TABLET PO SCH ×3 (09:12→21:33)
[2019-05-11] MEDS: THIAMINE 100 MG TABLET PO SCH (09:12)
[2019-05-11] MEDS: DESITIN 4OZ/NYSTATIN 15 GRAM MIXTURE PASTE TOP SCH ×2 (09:12→21:33)
[2019-05-11] MEDS: PIPERACILLIN/TAZOBACTAM 3,375 MG in SODIUM CHLORIDE 0.9% 100 ML IV SCH ×2 (09:12→21:33)
[2019-05-11] MEDS ORDERED: LORazepam 1 MG TABLET PO PRN (09:44)
[2019-05-11] MEDS ORDERED: INSULIN GLARGINE 100 UNIT/ML SUBCUT SCH (21:00)
[2019-05-12] MEDS: INSULIN LISPRO 100 UNIT/ML SUBCUT SCH ×4 (01:07→12:06)
[2019-05-12] MEDS: DEXMEDETOMIDINE 200 MCG in SODIUM CHLORIDE 0.9% 48 ML IV PRN (04:00)
[2019-05-12 04:17] LABS: ABG Base Excess 4.7 MMOL/L (-2.5-2.5); ABG HCO3 22.3 MMOL/L (20-26); ABG Oxygen Saturation 99.1 % (95-100); ABG PO2 181.6 MM HG (80-95); ABG TCO2 22.8 MMOL/L (23-27); Allen Test Positive; Pt O2 Delivery Device Ventilator
[2019-05-12 04:20] LABS: ABG PH 7.741 (7.35-7.45)
[2019-05-12 04:21] LABS: ABG PCO2 16.8 MM HG (35-48)
[2019-05-12 05:25] LABS: Basophils % 0.5 % (0.0-0.8); Eosinophils # 0.2 10*3/uL (0.0-0.87); Eosinophils % 2.3 % (0.00-10.9); Hematocrit 23.8 VOL% (35.7-47.0); Hemoglobin 7.7 GM/DL (12.0-16.0); Immature Granulocytes % 1.3 %; Lymphocytes # 1.8 10*3/uL (1.4-4.0); Lymphocytes % 23.2 % (21.3-54.2); Mean Corpuscular HGB Conc 32.4 GM/DL (32-36); Mean Corpuscular Volume 104.8 FL (87-102); Mean Platelet Volume 9.8 FL (9.6-12.0); Monocytes % 15.9 % (1.7-12.7); NRBC # 0.05 10*3/uL; Neutrophils % 56.8 % (38.7-73.9); Platelet Count 354 T/CUMM (130-400); Red Blood Count 2.27 MC/CUMM (3.8-5.5); Red Cell Distribution Width 21.9 % (9.3-17.3); White Blood Count 7.7 T/CUMM (4-12)
[2019-05-12 05:38] LABS: Calcium 8.1 MG/DL (8.5-10.1); Osmolality,Calculated 288.4 MOS/KG (273-304)
[2019-05-12 05:52] LABS: Anisocytosis 2+; Band Neutrophils 1 % (0-10); Eosinophils 2 % (0-10); Hypochromasia Slight; Lymphocytes 24 % (20-55); Macrocytosis 2+; Metamyelocytes 1 %; Nucleated Red Blood Cells 1 (0-5); Platelet Estimate Normal; Segmented Neutrophils 62 % (50-85); Total Cells Counted 100
[2019-05-12] MEDS: LEVOTHYROXINE 150 MCG TABLET PO SCH (06:06)
[2019-05-12] MEDS: PROPOFOL 1,000 MG/100 ML BOTTLE IV SCH (07:49)
[2019-05-12 08:13] VITALS: BP 124/76
[2019-05-12] MEDS ORDERED: APIXABAN 5 MG TABLET PER TUBE SCH (09:00)
[2019-05-12] MEDS: CALCIUM ACETATE 667 MG CAPSULE PO SCH ×2 (09:04→12:50)
[2019-05-12] MEDS: THIAMINE 100 MG TABLET PO SCH (09:05)
[2019-05-12] MEDS: LANSOPRAZOLE ODT 30 MG TABLET PO SCH (09:05)
[2019-05-12] MEDS: ASPIRIN CHEW 81 MG TABLET PO SCH (09:05)
[2019-05-12] MEDS: ESCITALOPRAM 10 MG TABLET PO SCH (09:05)
[2019-05-12] MEDS: CALCIUM CARBONATE CHEW 500 MG TABLET PO SCH (09:05)
[2019-05-12] MEDS: METOPROLOL SUCCINATE XL 25 MG TABLET PO SCH (09:05)
[2019-05-12] MEDS: EPOETIN ALFA 10,000 UNIT/1 ML VIAL SUBCUT SCH (09:06)
[2019-05-12] MEDS: DESITIN 4OZ/NYSTATIN 15 GRAM MIXTURE PASTE TOP SCH (09:07)
[2019-05-12] MEDS ORDERED: INFLUENZA VIRUS VACCINE 0.5 ML SYRINGE IM ONE (14:31)
[2019-05-12] MEDS ORDERED: PNEUMOCOCCAL VACCINE (13 VALENT) 0.5 ML SYRINGE IM ONE (14:33)
[2019-05-12] MEDS: MORPHINE 4 MG/1 ML VIAL IV PRN (14:52)
== END 2019-05-12 16:20 | DRG 207 ==
LOC: EDUNIT# → EDBD → N.ED 09:58 → N.EDINP 13:32 → SUATTDRO 13:32 → N.EDINP 15:17 → N.5E 15:30 → N.TELES 05-01 10:14 → N.ICU 05-04 15:42
PROVIDERS: ADMIT Family Medicine; ATTEND Internal Medicine